=== PATIENT | female | born 1960 | race Caucasian/White ===

== ENCOUNTER 2018-03-31 14:03 | Emergency (ER) | payer BC, SELFPAY ==
[2018-03-31 14:13] VITALS: BP 153/78; PULSE 84; RESP 20; TEMP 36.6; O2SAT 97; BMI 37.5
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
[2018-03-31 14:35] LABS: Add Manual Diff / Slide Review NO; Basophils Percent Auto 0.8 % (0-2); Eosinophils Percent Auto 2.7 % (2-4); Hematocrit 44.9 % (36-46); Lymphocytes Percent Auto 23.1 % (25-40); Mean Corpuscular HGB Conc 33.3 % (30-36); Mean Corpuscular Hemoglobin 28.6 PG (26-34); Mean Corpuscular Volume 85.7 fL (80-100); Neutrophils Absolute Auto 6800 /uL (3000-5900); Neutrophils Percent Auto 68.4 % (50-75); Platelet Count 206 X10^3/uL (150-400); Red Blood Cell Count 5.24 X10^6/uL (4.0-5.2); Red Cell Distribution Width 16.1 % (11.6-14.8); White Blood Cell Count 9.9 X10^3/uL (4.5-11.0)
[2018-03-31 14:41] VITALS: O2SAT 98
[2018-03-31] MEDS: ALBUTEROL/IPRATROPIUM 3 ML AMPUL INH (14:41)
[2018-03-31 14:49] LABS: Lactate (Lactic Acid) 1.6 mmol/L (0.7-2.1)
[2018-03-31 14:50] LABS: Alanine Aminotransferase 24 IU/L (9-52); Albumin 3.9 g/dL (3.5-5.0); Albumin Globulin Ratio 1.6 (1.0-2.8); Alkaline Phosphatase 114 U/L (38-126); Aspartate Aminotransferase 19 IU/L (14-36); BUN Creatinine Ratio 15.6 (6-22); Bilirubin Total 0.3 mg/dL (0.2-1.3); Blood Urea Nitrogen 14 mg/dL (7-17); Calcium 8.2 mg/dL (8.4-10.2); Carbon Dioxide 28 mmol/L (22-32); Chloride 106 mmol/L (98-107); Estimated Glomerular Filt Rate > 60.0 mL/min (>60); Globulin 2.5 g/dL (1.7-4.1); Glucose 140 mg/dL (80-110); HEMOLYSIS < 15 (0-50); Potassium 3.7 mmol/L (3.4-5.1); Sodium 146 mmol/L (137-145); Total Protein 6.4 g/dL (6.3-8.2)
[2018-03-31] MEDS: CLINDAMYCIN 600 MG/50 ML PIGGYBACK 50 MG IV (14:58)
[2018-03-31 15:00] VITALS: BP 118/63; PULSE 88; RESP 19; O2SAT 95
[2018-03-31 15:20] LABS: Procalcitonin < 0.05 ng/mL (<0.5)
[2018-03-31 15:30] VITALS: BP 118/63; PULSE 89; RESP 16; O2SAT 96
[2018-03-31 16:09] VITALS: BP 113/70; PULSE 85; RESP 21; TEMP 36.6; O2SAT 94
== END 2018-03-31 16:10 | disposition home or self-care (01) ==
PROVIDERS: Emergency Provider Emergency Medicine; PCP Internal Medicine
DX: L03.115 Cellulitis of right lower limb (principal)
CPT/HCPCS: 36415; 36591; 80053; 82962; 83605; 84145; 85025; 87040; 94640; 96365; 99283; 99284

== ENCOUNTER 2018-04-05 19:05 | Emergency (ER) | payer BC, SELFPAY ==
[2018-04-05 19:15] VITALS: BP 154/101; PULSE 96; RESP 20; TEMP 36.4; O2SAT 96
[2018-04-05] MEDS: ALBUTEROL/IPRATROPIUM 3 ML AMPUL INH ×2 (19:30→19:44)
[2018-04-05 19:31] VITALS: O2SAT 94
[2018-04-05 19:59] VITALS: BP 145/80; PULSE 84; RESP 24; O2SAT 90
[2018-04-05] MEDS: predniSONE 20 MG TABLET 40 MG PO (20:11)
[2018-04-05 20:30] VITALS: BP 145/74; PULSE 88; O2SAT 95
--- NOTE | 2018-04-05 20:31 | ED_ITS ---
HPI - URI/Sore Throat <QUYEN Arteaga - Last Filed: 04/05/18 22:21> General Chief Complaint: Upper Respiratory Symptoms Stated Complaint: trouble breathing Time Seen by Provider: 04/05/18 19:19 Source: patient Mode of arrival: ambulatory Limitations: no limitations History of Present Illness HPI Narrative: 58-year-old female with history asthma and multiple cor morbidities and is everyday smoker here for complaint of having increased wheezing and shortness of breath over the past few days. She reports that her nebulizer machine has broken she is currently in the process of trying to get a new 1. She also reports that she has had some nasal congestion during the same timeframe. She denies having any fevers. Positive p.o. intake. No nausea vomiting. She denies any other concerns or complaints at this time. Related Data Home Medications Medication Instructions Recorded Confirmed albuterol sulfate [Ventolin HFA] 2 puff INH Q4-6H PRN #0 06/27/16 03/31/18 bumetanide 1 mg PO BID #0 06/27/16 03/31/18 budesonide-formoterol [Symbicort] 2 inh INH DAILY #0 06/17/17 03/31/18 atorvastatin [Lipitor] 20 mg PO BEDTIME #0 07/27/17 03/31/18 gabapentin [Neurontin] 300 mg PO TID #0 07/27/17 03/31/18 oxycodone 5 mg PO Q6HP PRN #0 07/27/17 03/31/18 pantoprazole 40 mg PO DAILY #0 08/05/17 03/31/18 calcitriol 0.5 mcg PO DAILY 03/24/18 03/31/18 diazepam 10 - 20 mg PO BEDTIME PRN 03/24/18 03/31/18 fluticasone 1 spray INTRANASAL DAILY PRN 03/24/18 03/31/18 hydrocodone-acetaminophen 1 tab PO Q6H 03/24/18 03/31/18 lamotrigine 200 mg PO BID 03/24/18 03/31/18 levothyroxine 150 mcg PO DAILY 03/24/18 03/31/18 lurasidone 40 mg PO BEDTIME 03/24/18 03/31/18 magnesium 200 mg PO DAILY 03/24/18 03/31/18 oxycodone [OxyContin] 10 mg PO Q12H 03/24/18 03/31/18 solifenacin 5 mg PO DAILY 03/24/18 03/31/18 spironolactone 25 mg PO DAILY 03/24/18 03/31/18 venlafaxine 150 mg PO QPM 03/24/18 03/31/18 insulin glargine [Lantus Solostar 20 units SUBCUT BID 03/31/18 03/31/18 U-100 Insulin] mupirocin 1 applic TOPICAL DIRECTED 03/31/18 03/31/18 pramipexole 1.5 mg PO TID 03/31/18 03/31/18 Previous Rx's Medication Instructions Recorded clobetasol-emollient 1 [place]ana TOPICAL BID #30 gm 08/05/17 clindamycin HCl 300 mg PO QID #28 cap 03/31/18 prednisone 40 mg PO DAILY #8 tab 04/05/18 Allergies Allergy/AdvReac Type Severity Reaction Status Date / Time ciprofloxacin [From CIPRO] Allergy Severe HIVES, Verified 03/31/18 14:09 VOMITING metoclopramide [From REGLAN] Allergy Severe VOMITING Verified 03/31/18 14:09 penicillamine Allergy Severe Anaphylaxix Verified 03/31/18 14:09 Penicillins [PENICILLINS] Allergy Severe SEIZURES-CHILDHOOD; Verified 03/31/18 14:09 RASH phenytoin [From DILANTIN] Allergy Severe HIGH Verified 03/31/18 14:09 FEVER, EXTENSIVE RASH Sulfa (Sulfonamide Allergy Severe HIVES Verified 03/31/18 14:09 Antibiotics) [SULFA (SULFONAMIDE ANTIBIOTICS)] sumatriptan [SUMATRIPTAN] Allergy Severe Severe Verified 03/31/18 14:09 hypertension, WORSENING HEADACHES vancomycin Allergy Severe Red Man Verified 03/31/18 14:09 Syndrome cephalexin [CEPHALEXIN] Allergy Intermediate RASH, Verified 03/31/18 14:09 VOMING methylphenidate Allergy Intermediate HTN Verified 03/31/18 14:09 [From RITALIN] sulfamethoxazole Allergy Mild RASH, Verified 03/31/18 14:09 [From BACTRIM] ITCHING, VOMITING trimethoprim [From BACTRIM] Allergy Mild RASH Verified 03/31/18 14:09 sertraline AdvReac Severe GI Verified 03/31/18 14:09 intolerance, severe hypertension morphine [MORPHINE] AdvReac Intermediate PANIC Verified 03/31/18 14:09 ATTACK Review of Systems <QUYEN Arteaga - Last Filed: 04/05/18 22:21> Constitutional Denies chills, Denies fever(s), Denies lethargy and Denies weakness Eyes Denies change in vision, Denies eye discharge, Denies irritation and Denies loss of vision ENT Ears, Nose, Mouth, and Throat: Denies change in voice, Denies neck pain and Denies sore throat Cardiovascular Denies chest pain, Denies irregular heart rhythm, Denies lightheadedness, Denies palpitations, Reports dyspnea and Denies orthopnea Respiratory Reports dyspnea and Reports wheezing Gastrointestinal Gastrointestinal: Denies abdominal pain, Denies change in bowel habits, Denies diarrhea, Denies nausea and Denies vomiting Genitourinary Denies hematuria, Denies flank pain, Denies urinary incontinence and Denies urinary urgency Musculoskeletal Denies neck pain Integumentary/Breasts Denies pruritus, Denies erythema, Denies rash and Denies wounds Neurologic Denies confusion, Denies loss of vision and Denies weakness Psychiatric Denies anxiety, Denies confusion, Denies depression, Denies homicidal ideation and Denies suicidal ideation Endocrine Denies palpitations Hematologic/Lymphatic Denies easy bruising Allergic/Immunologic Reports wheezing Exam <QUYEN Arteaga - Last Filed: 04/05/18 22:21> Initial Vital Signs Initial Vital Signs: Vital Signs Temperature 97.6 F 04/05/18 19:15 Pulse Rate 96 H 04/05/18 19:15 Respiratory Rate 20 04/05/18 19:15 Blood Pressure 154/101 H 04/05/18 19:15 Pulse Oximetry 96 04/05/18 19:15 Const General: cooperative and well developed Nutritional Appearance: well nourished Orientation: alert, awake, oriented x3 and not confused HENMT Mouth: oral mucosae normal and moist mucous membranes Eyes Conjunctivae: conjunctivae normal Sclera: sclerae normal Pupils: PERRL EOM: EOM intact bilaterally Resp Effort & Inspection: normal respiratory effort, able to speak in complete sentences, no respiratory distress and no use of accessory muscles Auscultation: no rales, no rhonchi and wheezes expiratory wheezes, lower bilaterally and upper bilaterally Cardio Rate: regular rate Rhythm: regular rhythm Heart Sounds: no click, no gallops, no murmurs and no rubs Skin General: no rashes or lesions noted, No jaundice and No petechiae Neuro General: alert, oriented x3, gait normal and no focal motor deficits Speech: speech normal <Irvin Yung DO - Last Filed: 04/06/18 00:17> Initial Vital Signs Initial Vital Signs: Vital Signs Temperature 97.6 F 04/05/18 19:15 Pulse Rate 96 H 04/05/18 19:15 Respiratory Rate 20 04/05/18 19:15 Blood Pressure 154/101 H 04/05/18 19:15 Pulse Oximetry 96 04/05/18 19:15 Course <QUYEN Arteaga - Last Filed: 04/05/18 22:21> Orders Ordered: Discontinued Medications Albuterol/Ipratropium (Duoneb) 3 ml INH NOW ONE Stop: 04/05/18 19:24 Last Admin: 04/05/18 19:30 Dose: 3 ml Albuterol/Ipratropium (Duoneb) 3 ml INH NOW PRN PRN Reason: Bronchodilation Last Admin: 04/05/18 19:44 Dose: 3 ml Prednisone (Deltasone) 40 mg PO NOW ONE Stop: 04/05/18 20:06 Last Admin: 04/05/18 20:11 Dose: 40 mg Vital Signs - 8 hr 04/05/18 19:15 04/05/18 19:31 04/05/18 19:59 Temperature 97.6 F Pulse Rate 96 H 84 Respiratory Rate 20 24 Blood Pressure 154/101 H Blood Pressure [Left Arm] 145/80 H Pulse Oximetry 96 94 90 L 04/05/18 20:30 04/05/18 20:50 Temperature 98.3 F Pulse Rate 88 86 Respiratory Rate 18 Blood Pressure 141/77 H Blood Pressure [Left Arm] 145/74 H Pulse Oximetry 95 92 <Irvin Yung DO - Last Filed: 04/06/18 00:17> Orders Ordered: Discontinued Medications Albuterol/Ipratropium (Duoneb) 3 ml INH NOW ONE Stop: 04/05/18 19:24 Last Admin: 04/05/18 19:30 Dose: 3 ml Albuterol/Ipratropium (Duoneb) 3 ml INH NOW PRN PRN Reason: Bronchodilation Last Admin: 04/05/18 19:44 Dose: 3 ml Prednisone (Deltasone) 40 mg PO NOW ONE Stop: 04/05/18 20:06 Last Admin: 04/05/18 20:11 Dose: 40 mg Vital Signs - 8 hr 04/05/18 19:15 04/05/18 19:31 04/05/18 19:59 Temperature 97.6 F Pulse Rate 96 H 84 Respiratory Rate 20 24 Blood Pressure 154/101 H Blood Pressure [Left Arm] 145/80 H Pulse Oximetry 96 94 90 L 04/05/18 20:30 04/05/18 20:50 Temperature 98.3 F Pulse Rate 88 86 Respiratory Rate 18 Blood Pressure 141/77 H Blood Pressure [Left Arm] 145/74 H Pulse Oximetry 95 92 MDM - URI/Sore Throat <QUYEN Arteaga - Last Filed: 04/05/18 22:21> MDM Narrative Medical decision making narrative: Signs and symptoms presents as asthma exacerbation secondary to a viral illness and also not having working nebulizer machine. She was given 2 DuoNeb treatments in the emergency room which helped her symptoms and she states she feels much better. She is encouraged to get her a nebulizer machine tomorrow to use her already prescribed nebulizer treatments. Continue to use her other asthma medications as well. She is given a short course of prednisone to help with exacerbation. Follow up with primary care provider. For any worsening symptoms return to the emergency room. Discharge Plan Departure Patient Disposition: Home Clinical Impression: Asthma exacerbation Discharge Date/Time: 04/05/18 20:54 Interventions: ED Discharge Assessment Last Done: 04/05/18 20:50 Instructions: DI for Asthma -- Adult Activity Restrictions/Additional Instructions: Signs and symptoms presents as asthma exacerbation secondary to a viral illness and also not having urine embolized machine. Gait with [facility] tomorrow to get your nebulizer machine replaced. Use asthma prescriptions as prescribed. You are prescribed a short course of prednisone use as directed. Plenty of fluids and rest follow up with her primary care provider this week. For any worsening symptoms return to the emergency room. Prescriptions: New prednisone 20 mg tablet 40 mg PO DAILY Qty: 8 RF: 0 No Action bumetanide 1 MG tablet 1 mg PO BID Qty: 0 RF: 0 albuterol sulfate [Ventolin HFA] 90 MCG/PUFF HFA aerosol inhaler 2 puff INH Q4-6H PRN (Reason: Wheezing) Qty: 0 RF: 0 budesonide-formoterol [Symbicort] 160 MCG/4.5 MCG HFA aerosol inhaler 2 inh INH DAILY Qty: 0 RF: 0 oxycodone 5 MG capsule 5 mg PO Q6HP PRN (Reason: Severe Pain) Qty: 0 RF: 0 gabapentin [Neurontin] 300 MG capsule 300 mg PO TID Qty: 0 RF: 0 atorvastatin [Lipitor] 20 MG tablet 20 mg PO BEDTIME Qty: 0 RF: 0 pantoprazole 40 MG tablet,delayed release (DR/EC) 40 mg PO DAILY Qty: 0 RF: 0 clobetasol-emollient 0.05 % cream 1 susana Topical BID Qty: 30 RF: 0 lamotrigine 200 mg Tablet 200 mg PO BID RF: 0 hydrocodone-acetaminophen 5-325 mg Tablet 1 tab PO Q6H RF: 0 venlafaxine 150 mg Capsule,Extended Release 24hr 150 mg PO QPM RF: 0 spironolactone 25 mg Tablet 25 mg PO DAILY RF: 0 calcitriol 0.5 mcg Capsule 0.5 mcg PO DAILY RF: 0 levothyroxine 150 mcg Tablet 150 mcg PO DAILY RF: 0 diazepam 10 mg Tablet 10 - 20 mg PO BEDTIME PRN (Reason: Sleep) RF: 0 fluticasone 50 mcg/actuation [place],Suspension 1 spray INTRANASAL DAILY PRN (Reason: Congestion) RF: 0 magnesium 200 mg Tablet 200 mg PO DAILY RF: 0 solifenacin 5 mg Tablet 5 mg PO DAILY RF: 0 lurasidone 40 mg Tablet 40 mg PO BEDTIME RF: 0 oxycodone [OxyContin] 10 mg Tablet,Oral Only,Ext.Rel.12 Hr 10 mg PO Q12H RF: 0 mupirocin 2 % ointment 1 applic Topical DIRECTED RF: 0 pramipexole 1.5 mg tablet 1.5 mg PO TID RF: 0 insulin glargine [Lantus Solostar U-100 Insulin] 100 unit/mL (3 mL) insulin pen 20 units subcut BID RF: 0 clindamycin HCl 300 mg capsule 300 mg PO QID Qty: 28 RF: 0 Referrals: Sole Davenport MD [Primary Care Provider] - <Irvin Potter, DO - Last Filed: 04/06/18 00:17> Cosign ED Attending Dianna Attestation: I was immediately available in the department for consultation. Documentation has been reviewed. I agree with assessment and plan.
[2018-04-05 20:50] VITALS: BP 141/77; PULSE 86; RESP 18; TEMP 36.8; O2SAT 92
== END 2018-04-05 20:54 | disposition home or self-care (01) ==
PROVIDERS: Emergency Provider Nurse Practitioner Family; PCP Internal Medicine
DX: J45.901 Unspecified asthma with (acute) exacerbation (principal)
CPT/HCPCS: 94640; 99282; 99283

== ENCOUNTER 2018-06-18 16:11 | Emergency (ER) | payer BC, SELFPAY ==
[2018-06-18 16:18] VITALS: BMI 35.2
[2018-06-18 16:21] VITALS: BP 133/77; PULSE 84; RESP 25; TEMP 36.8; O2SAT 94
--- NOTE | 2018-06-18 16:25 | DI.RAD.S_ITS ---
PROCEDURE: XR CHEST 1V INDICATIONS: chest pain TECHNIQUE: One view of the chest was acquired. COMPARISON: [facility], CR, XR CHEST 1 VIEW, 08/24/2017, 17:06. FINDINGS: Surgical changes and devices: None. Lungs and pleura: Lungs are clear. No pleural effusions or pneumothorax. Mediastinum: Mediastinal contours appear normal. Heart size is normal. Bones and chest wall: No suspicious bony lesions. Overlying soft tissues appear unremarkable. IMPRESSION: No acute cardiopulmonary disease process. Dictated by: Denise Meadows MD, PhD on 06/18/2018 at 16:48 Approved by: Denise Meadows MD, PhD on 06/18/2018 at 16:48
[2018-06-18 16:38] LABS: Add Manual Diff / Slide Review NO; Basophils Absolute Auto 100 /uL (0-100); Basophils Percent Auto 1.1 % (0-2); Eosinophils Absolute Auto 200 /uL (0-450); Eosinophils Percent Auto 1.7 % (2-4); Hematocrit 44.1 % (36-46); Hemoglobin 14.5 g/dL (12.0-16.0); Lymphocytes Absolute Auto 2400 /uL (1100-4500); Lymphocytes Percent Auto 21.8 % (25-40); Mean Corpuscular HGB Conc 32.9 % (30-36); Monocytes Absolute Auto 600 /uL (0-900); Monocytes Percent Auto 5.4 % (3-14); Neutrophils Absolute Auto 7800 /uL (1500-7000); Platelet Count 211 X10^3/uL (150-400); Red Blood Cell Count 5.19 X10^6/uL (4.0-5.2); Red Cell Distribution Width 15.9 % (11.6-14.8); White Blood Cell Count 11.1 X10^3/uL (4.5-11.0)
[2018-06-18 16:49] LABS: Alanine Aminotransferase 25 IU/L (9-52); Albumin Globulin Ratio 1.4 (1.0-2.8); Alkaline Phosphatase 111 U/L (38-126); Aspartate Aminotransferase 14 IU/L (14-36); BUN Creatinine Ratio 17.3 (6-22); Bilirubin Total 0.4 mg/dL (0.2-1.3); Blood Urea Nitrogen 19 mg/dL (7-17); Calcium 8.5 mg/dL (8.4-10.2); Carbon Dioxide 30 mmol/L (22-32); Chloride 100 mmol/L (98-107); Creatine Kinase 82 U/L (30-135); Estimated Glomerular Filt Rate 50.7 mL/min (>60); Globulin 2.8 g/dL (1.7-4.1); Glucose 109 mg/dL (80-110); HEMOLYSIS < 15 (0-50); Lipase 44 U/L (23-300); Potassium 3.3 mmol/L (3.4-5.1); Sodium 140 mmol/L (137-145); Total Protein 6.8 g/dL (6.3-8.2)
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
[2018-06-18 16:57] VITALS: BP 115/69; PULSE 73; RESP 18; O2SAT 91
[2018-06-18 17:01] LABS: Troponin I < 0.012 ng/mL (0.01-0.034)
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
[2018-06-18] MEDS: ACETAMINOPHEN 325 MG TABLET 975 MG PO (17:03)
== END 2018-06-18 17:49 | disposition home or self-care (01) ==
PROVIDERS: Emergency Provider Emergency Medicine; PCP Internal Medicine
DX: M79.602 Pain in left arm (principal); R20.0 Anesthesia of skin
CPT/HCPCS: 36591; 71045; 80053; 82550; 83690; 84484; 85025; 93005; 99283; 99285

== ENCOUNTER 2018-06-28 15:52 | Emergency (ER) | payer BC, SELFPAY ==
[2018-06-28 15:58] VITALS: BP 127/82; PULSE 85; RESP 14; TEMP 37.3; O2SAT 95
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
--- NOTE | 2018-06-28 19:50 | PC.NURSE ---
LLE cellulitis currently on abx. Patient concerned it isn't healing fast enough Redness and swelling noted, warm to the touch. Afebrile currently
[2018-06-28 19:52] VITALS: BP 128/79; PULSE 88; RESP 16; TEMP 36.6; O2SAT 98
== END 2018-06-28 19:52 | disposition home or self-care (01) ==
PROVIDERS: Emergency Provider Emergency Medicine; PCP Internal Medicine
DX: L03.115 Cellulitis of right lower limb (principal)
CPT/HCPCS: 99282

== ENCOUNTER → 2021-08-16 12:22 | Outpatient (CLI) | payer BC, SELFPAY ==
--- NOTE | 2021-08-16 | DI.MRI.S_ITS ---
PROCEDURE: MR KNEE LT WO CON INDICATIONS: Unspecified internal derangement of left knee TECHNIQUE: Noncontrast sagittal PD fast spin echo and T2 fast spin echo with fat saturation, sagittal 3-D FLASH with fat saturation; coronal T1 spin echo and PD fast spin echo with fat saturation, and axial PD fast spin echo with fat saturation through the knee. COMPARISON: [facility] [place], CR, XR KNEE ARTHRITIC SERIES LT, 10/02/2017, 11:20. FINDINGS: Image quality: Some images are degraded by motion artifact. Menisci: Blunting of the posterior horn, medial meniscus and extrusion of the anterior horn, medial meniscus, compatible with meniscal tear. The lateral meniscus is intact. Cruciate ligaments: The anterior and posterior cruciate ligaments appear intact. Medial structures: The medial collateral ligament appears intact. Visualized portions of the pes anserinus tendons appear normal. No abnormal bursal fluid. Lateral structures: The lateral collateral ligament, long and short heads of the biceps femoris tendon appear intact. The popliteus tendon appears normal. Iliotibial band appears normal. Anterior structures: The quadriceps and patellar tendons appear intact. Patellar alignment is normal. No femoral trochlear dysplasia or ventral trochlear prominence. No edema in the infrapatellar fat pad. Bones and cartilage: No evidence of fracture. Tricompartment osteophytosis, most prominent about the medial compartment. T1 hypointense signal in the medial femoral condyle and tibial plateau, compatible with osteochondral injury. Signal heterogeneity and thinning of the tricompartment hyaline cartilage, most prominent in the medial compartment. No focal defect is appreciated. Joint space: Small knee joint fluid. No substantial Hartman's cyst. IMPRESSION: 1. Changes of the medial meniscus as detailed above, compatible with tear. 2. Small suprapatellar joint effusion. Dictated by: Kye Downs M.D. on 08/16/2021 at 13:55 Approved by: Kye Downs M.D. on 08/16/2021 at 14:01
== END ==
PROVIDERS: PCP Internal Medicine; Referring Provider Orthopaedic Surgery; Visit Provider Orthopaedic Surgery
DX: M23.92 Unspecified internal derangement of left knee (principal); M25.462 Effusion, left knee
CPT/HCPCS: 73721

== ENCOUNTER → 2021-10-22 15:35 | Outpatient (CLI) | payer BC, SELFPAY ==
[2021-10-22 17:12] LABS: Add Manual Diff / Slide Review NO; Basophils Absolute Auto 100 /uL (0-100); Basophils Percent Auto 0.5 % (0-2); Eosinophils Absolute Auto 500 /uL (0-450); Eosinophils Percent Auto 4.7 % (2-4); Hematocrit 44.4 % (36-46); Hemoglobin 15.4 g/dL (12.0-16.0); Lymphocytes Absolute Auto 2900 /uL (1100-4500); Lymphocytes Percent Auto 27.9 % (25-40); Mean Corpuscular HGB Conc 34.6 % (30-36); Mean Corpuscular Hemoglobin 31.5 PG (26-34); Mean Corpuscular Volume 91.1 fL (80-100); Monocytes Absolute Auto 500 /uL (0-900); Monocytes Percent Auto 5.2 % (3-14); Neutrophils Absolute Auto 6500 /uL (1500-7000); Neutrophils Percent Auto 61.7 % (50-75); Platelet Count 185 X10^3/uL (150-400); Red Blood Cell Count 4.88 X10^6/uL (4.0-5.2); Red Cell Distribution Width 14.4 % (11.6-14.8); White Blood Cell Count 10.6 X10^3/uL (4.5-11.0)
[2021-10-22 17:47] LABS: Hemoglobin A1C% w Est Avg Glu 7.1 % (4.0-6.0)
[2021-10-22 17:50] LABS: Alanine Aminotransferase 21 IU/L (<35); Albumin 4.4 g/dL (3.5-5.0); Albumin Globulin Ratio 1.5 (1.0-2.8); Alkaline Phosphatase 122 U/L (38-126); Aspartate Aminotransferase 32 IU/L (14-36); BUN Creatinine Ratio 17.9 (6-22); Bilirubin Total 0.7 mg/dL (0.2-1.3); Blood Urea Nitrogen 19 mg/dL (7-17); Calcium 8.3 mg/dL (8.4-10.2); Carbon Dioxide 27 mmol/L (22-32); Chloride 104 mmol/L (98-107); Estimated Glomerular Filt Rate 59 mL/min (>60); Glucose 121 mg/dL (80-110); Potassium 4.1 mmol/L (3.4-5.1); Sodium 141 mmol/L (137-145); Total Protein 7.4 g/dL (6.3-8.2); Uric Acid 5.2 mg/dL (2.5-6.2)
[2021-10-22 17:56] LABS: HEMOLYSIS 102 (0-50)
== END ==
PROVIDERS: PCP Internal Medicine; Referring Provider Physician Assistant; Visit Provider Physician Assistant
DX: M25.562 Pain in left knee (principal)
CPT/HCPCS: 36415; 80053; 83036; 84550; 85025

== ENCOUNTER → 2021-11-02 09:42 | Outpatient (CLI) | payer BC, SELFPAY ==
[2021-11-02 11:30] LABS: COVID19 -Nasal RAPID Negative (Negative)
== END ==
PROVIDERS: PCP Internal Medicine; Referring Provider Orthopaedic Surgery; Visit Provider Orthopaedic Surgery
DX: Z20.822 Contact with and (suspected) exposure to COVID-19 (principal)
CPT/HCPCS: 87635; C9803

== ENCOUNTER 2021-11-06 09:37 | Observation (INO) | payer BC, SELFPAY ==
[2021-10-31 14:49] VITALS: BMI 36.3
[2021-11-05] VITALS (23 sets, daily range): BP systolic 110–137; BP diastolic 65–85; PULSE 77–98; RESP 12–18; TEMP 36.1–36.6; O2SAT 91–96; BMI 36.3
--- NOTE | 2021-11-05 07:15 | DI.RAD.S_ITS ---
PROCEDURE: XR KNEE LT 1TO2V INDICATIONS: TKA TECHNIQUE: 2 view(s) of the knee acquired. COMPARISON: [facility], , KNEE 1-2 VIEWS RIGHT, 07/27/2017, 12:12. FINDINGS: Bones: Patient is status post knee joint arthroplasty. Hardware components are in expected positions. Visualized bony structures are intact. Soft tissues: Overlying postoperative changes are noted. IMPRESSION: Status post left total knee arthroplasty. Dictated by: Bharati Negron M.D. on 11/05/2021 at 12:09 Approved by: Bharati Negron M.D. on 11/05/2021 at 12:09
[2021-11-05] MEDS: LACTATED RINGERS 1,000 ML 42 ML IV (07:16)
[2021-11-05] MEDS: CELECOXIB 200 MG CAPSULE PO (07:24)
[2021-11-05] MEDS: ACETAMINOPHEN 325 MG TABLET 975 MG PO (07:24)
[2021-11-05] MEDS: ALBUTEROL 2.5 MG/3 ML NEB (ADULT) INH ×3 (07:38→20:00)
[2021-11-05] MEDS: VANCOMYCIN 1,000 MG/200 ML PIGGYBACK 200 MG IV ×2 (07:38→20:09)
--- NOTE | 2021-11-05 07:40 | P.OP_ITS ---
Operative Date/Time/Diagnoses Date of procedure: 11/05/21 Time of procedure: 08:02 Pre-op diagnosis: Left knee osteoarthritis Post-op diagnosis: same Procedure & Clinicians Procedure: Left total knee arthroplasty Same procedure as scheduled: Yes Indications: The patient has had progressively worsening left knee pain with radiographic changes consistent with arthritis. Non-operative management has failed and the patient has requested total knee replacement. The risks, benefits and alternatives to surgery were discussed with the patient prior to proceeding. Risks discussed included, but were not limited to, failure to relieve pain, stiffness, infection, nerve damage, deep venous thrombosis, pulmonary embolism, stroke, coma, heart attack, permanent paralysis and , as well as the potential need for eventual revision of the prosthetic. Surgeon: Dulce Culp Air Pollution Inspector: Doron Franz Anesthesia Type: General and Spinal Operative Notes Findings: Severe left knee arthritis, adequate stability Closure Type: primary Specimen(s): none sent Prosthetic devices, grafts, tissues, transplants, or devices: [employer] BCS 2 size 3 femur, size 3 tibia, +10 poly, 35mm oval Applied: drain(s) Estimated Blood Loss (mL): 250 Blood products transfused: none Tourniquet time (min): 73 Procedure in detail: The patient was seen in the pre-operative area, where the patient identified the left knee as the operative site and this was marked with my initials. The patient received pre-operative antibiotics, and was taken to the operating room and placed on the operative table in the supine position. After satisfactory anesthesia, a cdl b driver out was performed. The left leg was encircled with a tourniquet about the proximal thigh, and the leg was prepared from the toes to the tourniquet with ChloroPrep in the usual fashion and draped through sterile drapes. The leg was elevated and exsanguinated with Eschmark bandage and the tourniquet inflated to [300] mmHg pressure. The knee was approached through an approximately 18 cm incision centered over the patella and carried into the knee through a medial parapatellar arthrotomy. Portion of the medial and lateral meniscus was resected. Soft tissue was carefully mobilized around the patella the patella was measured with a caliper. Bone was resected from the patella and the patellar height was reconstituted with up an appropriate sized patellar component. A cover was then placed on the patella. A small amount of additional medial and lateral meniscus was resected. The visionare guide fit well to the distal femur. It looked like an appropriate distal femoral cut and the cut was made without difficulty. The rotation was assessed and the appropriate size femoral guide was placed on the distal femur and finishing cuts were made. There was no evidence of notching. The anterior, posterior and chamfer cuts were then made. The posterior osteophytes and soft tissues were then removed. The posterior capsule was injected with part of a mixture of 60 ml 0.25% Marcaine mixed with 20 ml Exparel for post operative pain control. The remainder of this mixture was injected into the capsule and subcutaneous tissues during cement curing. The tibia was prepared and the visionaire guide fit well to the distal tibia. The rotation was assessed. The patient was placed in extension residual medial and lateral meniscus as well as any residual bone was carefully resected. [No] additional tibia was resected. Hemostasis was achieved especially posteriorly. Additional local was injected into the posterior capsule. The extension gap was assessed and additional releases for gap balancing were performed as necessary. It was checked with the gap printed circuit boards router. The femoral component was trial was placed and the notch was finished. Trial tibial and femoral components were then placed and the knee placed through a range of motion. Range of motion was [0-130], with good stability throughout the range. The trials were then removed, and the tibia was finished. The bone was prepared with pulsatile lavage, and dried with a sponge. Cement was applied and the final prosthetics placed. Excess cement was removed during and after cement curing. A brief Betadine soak was performed. After confirming there was no extruded cement posteriorly, the final tibial insert was placed. The knee was copiously irrigated and the tourniquet deflated. Hemostasis was obtained with the [Aquamantys system]. A drain was placed and brought out superolaterally. The capsule was closed with interrupted Vicryl suture. The subcutaneous layer was closed with barbed sutures, and the skin with a running 3-0 V-Lock suture and skin nasir. A Reggie dressing was applied and the patient was taken to recovery having tolerated the procedure well. Complications: none Post-operative Condition: stable Disposition: Acute Care Plan for aftercare: The patient will be maintained on a standard total knee replacement protocol with weight bearing as tolerated. The patient will be admitted as an inpatient. She has multiple medical problems including insulin-dependent diabetes, asthma, significant obesity and has had some component of chronic pain problems with poor tolerance to some narcotics. The goal is to mood mobilize her get her out of bed weight-bearing as tolerated in eventually get her to go home but I think she needs acute Care Nursing more than an outpatient with a bed. She also has some component of chronic venous stasis. The patient will receive aspirin and sequential compression devices for DVT prophylaxis. The patient will be discharged home when safe for the home environment.
--- NOTE | 2021-11-05 07:41 | PM.PREOP ---
Pre-operative Note COVID-19 COVID-19 status: Negative Interval Note History & Physical reviewed/Exam performed by Physician: Yes Changes to H&P: No
[2021-11-05] MEDS: CLINDAMYCIN 900 MG/50 ML PIGGYBACK 50 MG IV (08:14)
[2021-11-05] MEDS: TRANEXAMIC ACID 1,000 MG VIAL 2000 MG INJ ×2 (08:23→10:02)
[2021-11-05] MEDS: SODIUM CHLORIDE IRRIG SOLUTION 250 ML, POVIDONE-IODINE SPONGE STICKS 1 APPLIC IRR (08:42)
[2021-11-05] MEDS: BUPIVACAINE 0.25% (PF) 60 ML, EPINEPHrine 0.3 MG INJ (08:43)
--- NOTE | 2021-11-05 08:52 | SUR.OPER ---
Supine on padded OR bed. Pillow under head, arms secured on padded armboards <90 degree abduction. Safety belt across torso. Non-operative leg secured with tape over blanket over lower leg. Operative leg secured in [place]o positioner and in control of the Surgeon. Foam padded brace at thigh of operative leg.
[2021-11-05] MEDS: BUPIVACAINE LIPOSOME 266 MG/20 ML VIAL INJ (09:20)
[2021-11-05] MEDS: HYDROMORPHONE 2 MG INJ IV ×2 (11:05→11:25)
[2021-11-05] MEDS: hydrOXYzine 50 MG/ML INJ 25 MG IM (11:13)
[2021-11-05] MEDS: OXYCODONE IR 5 MG TABLET PO (11:31)
--- NOTE | 2021-11-05 11:48 | SUR.OPER ---
Patient unable to remove ring from left fourth finger for surgery, therefore kept in place.
[2021-11-05] MEDS: LACTATED RINGERS 1,000 ML 100 ML IV ×2 (13:34→23:54)
[2021-11-05] MEDS: ACETAMINOPHEN 325 MG TABLET 650 MG PO ×3 (13:34→23:55)
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
[2021-11-05] MEDS: PRAMIPEXOLE 1 MG TABLET 1.5 MG PO ×2 (15:15→20:17)
[2021-11-05] MEDS: GABAPENTIN 300 MG CAPSULE PO ×2 (15:15→20:19)
[2021-11-05] MEDS: NICOTINE 21 MG PATCH TOP (15:15)
[2021-11-05] MEDS: VENLAFAXINE ER 75 MG CAP 150 MG PO (19:04)
[2021-11-05] MEDS: OXYCODONE IR 5 MG TABLET 10 MG PO ×2 (19:14→23:55)
[2021-11-05] MEDS: BUDESONIDE 0.5 MG/2 ML NEB INH (20:00)
[2021-11-05] MEDS: ATORVASTATIN 20 MG TABLET PO (20:20)
[2021-11-05] MEDS: DOCUSATE 100 MG CAPSULE PO (20:20)
[2021-11-05] MEDS: ASPIRIN EC 81 MG TABLET PO (20:20)
[2021-11-05] MEDS: lamoTRIgine 100 MG TABLET 200 MG PO (20:20)
[2021-11-05] MEDS: MUPIROCIN 22 GM OINT 1 APPLIC TOP (21:44)
[2021-11-05] MEDS: INSULIN GLARGINE 100 UNIT/ML 3ML PEN 20 UNIT SUBCUT (21:45)
[2021-11-05] MEDS: BUMETANIDE 1 MG TABLET PO (21:52)
[2021-11-06] VITALS (12 sets, daily range): BP systolic 101–124; BP diastolic 55–70; PULSE 75–87; RESP 15–21; TEMP 36.1–37; O2SAT 94–97
[2021-11-06] MEDS: ALBUTEROL 2.5 MG/3 ML NEB (ADULT) INH ×5 (02:19→22:34)
--- NOTE | 2021-11-06 02:47 | PC.NURSE ---
pt received Vanco IVP per JUL at 2008 and pt reported no allergy to med. Patient allergy lists Vanco with a severe reaction with Red Man Syndrome. Patient tolerated infusion without s/s of adverse reaction.
[2021-11-06] MEDS: OXYCODONE IR 5 MG TABLET 10 MG PO ×3 (04:19→13:44)
[2021-11-06 05:19] LABS: Hematocrit 40.3 % (36-46); Hemoglobin 13.4 g/dL (12.0-16.0)
[2021-11-06] MEDS: LEVOTHYROXINE 150 MCG TABLET PO (06:56)
[2021-11-06] MEDS: ACETAMINOPHEN 325 MG TABLET 650 MG PO ×3 (06:56→17:11)
[2021-11-06] MEDS: NICOTINE 21 MG PATCH TOP (08:39)
[2021-11-06] MEDS: BUDESONIDE 0.5 MG/2 ML NEB INH ×2 (08:41→20:06)
[2021-11-06] MEDS: DOCUSATE 100 MG CAPSULE PO ×2 (08:41→22:23)
[2021-11-06] MEDS: PRAMIPEXOLE 1 MG TABLET 1.5 MG PO ×3 (08:41→22:23)
[2021-11-06] MEDS: lamoTRIgine 100 MG TABLET 200 MG PO ×2 (08:42→22:24)
[2021-11-06] MEDS: SPIRONOLACTONE 25 MG TABLET PO (08:42)
[2021-11-06] MEDS: PANTOPRAZOLE DR 40 MG TABLET PO (08:43)
[2021-11-06] MEDS: ASPIRIN EC 81 MG TABLET PO ×3 (08:43→22:24)
[2021-11-06] MEDS: GABAPENTIN 300 MG CAPSULE PO ×3 (08:43→22:24)
[2021-11-06] MEDS: SOLIFENACIN 5 MG TABLET PO (08:43)
[2021-11-06] MEDS: MAGNESIUM OXIDE 400 MG TABLET 200 MG PO (08:43)
[2021-11-06] MEDS: calcitrioL 0.25 MCG CAPSULE 0.5 MCG PO (08:44)
[2021-11-06] MEDS: INSULIN GLARGINE 100 UNIT/ML 3ML PEN 20 UNIT SUBCUT ×2 (08:44→22:51)
[2021-11-06] MEDS: BUMETANIDE 1 MG TABLET PO ×2 (08:47→22:24)
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
--- NOTE | 2021-11-06 11:31 | CM.DANOTE ---
Addendum entered by Emilia Quinn R.N. 11/06/21 12:42: Spoke to Toño, and stated, she will need jail, she was barely able to work with therapy, due to pain. [place] had indicated that patient wanted to go to [facility], did not want to go to [facility], she had a bad experience there. Called Nita at [facility], and asked her to review. She then called back and indicated that [facility] is out of their network, and patient would have to pay about 40%. Spoke to patient and spouse, Navarro, and updated them. He stated, they can't afford 40%. Gave Medicare Choice list, and let them know that this DC Carbide Grinder will follow up with [facility], and [facility], to see if they are in network. Left message with Candice Conway and [facility], and had Shahida fax referral. Called [facility]la and spoke to Candido in admissions. She indicated that they are in network, and have beds. Having Shahida fax [facility] first. Will follow up later today. Original Note: DCP: Case received, EMR reviewed and met with patient. Introduced self and role. Was able to obtain information regarding patient's baseline activity status prior to surgery, as well as her current living situation. DCP assessment completed with information currently available. Patient is a 61 year old female who admitted yesterday morning to the care of the orthopedic team. PCP: Dr. Davenport. Payer: confirmed: BS Out of [facility]. Patient came to the hospital via private vehicle for a surgical procedure. Patient had left total knee arthroplasty. Patient has history of left knee osteoarthritis. Patient does have history of some medical co-morbidities, insulin-dependent diabetic, asthma, as well as chronic venous stasis and chronic pain syndrome. Patient had been falling asleep while eating her breakfast, when ortho P.A. came in. She was supposed to call her spouse for caregiver training, but forgot to do so. She was complaining of pain to be a 12 out of 10. Met with patient in her room. She was sitting up in bed, groggy. Confirmed that patient resides in [facility] with her spouse, Navarro, and also, son and [id number]. She does not currently drive, she stated, she has used [facility] in the past, with nursing, for her legs, due to her history of chronic stasis. She indicated, her [id number] can't help her, she has her own mental health problems, but her spouse, Navarro, would be the one assisting her. He is retired, was working as a contractor. P: DCP to continue to follow. She will work more with P.Mogi. today, and will initiate referral for [facility] per patient's request. Emilia Quinn RN/Harbor Department Manager Discharge Planning/Care Management CM Discharge Assessment Start: 11/06/21 11:27 Freq: Status: Active Protocol: Document 11/06/21 11:27 (Rec: 11/06/21 11:31 [id number]) Discharge Planning Assessment Assigned Insurance Operations Rep Emilia Quinn RN/Harbor Department Manager Advance Directives? No History Provided By Patient,Medical Record Prior Living Arrangements House Household Members spouse Type of transporation used prior to Relies on Others admit Independent with ADL's Yes Is patient alert and oriented? Yes Needs Assistance With Home Chores / Shopping Caregiver for Another No DME Already Rented / Owned Cane Patient/Family Preference Home with Home Health Comment Patient is requesting [facility]. Barriers to Discharge No Discharge Plan Home with Home Health Transportation Arrangement Spouse Referrals Initiated Home Health If patient plan is home with home health Yes: There some presigned face : Has signed face to face form been to face forms available completed? Medicare Choice List Provided Yes SNF/HH Preference Patient is already requesting [facility]. Comment Will contact them today Whiteboard Updated in Patient Room with Yes name and ext. # of Insurance Operations Rep Review Status In Process Next Review Type Continued Stay Review Pre-Anesthesia Assessment Start: 10/31/21 14:49 Freq: Status: Complete Protocol: Document 10/31/21 14:49 CAB (Rec: 10/31/21 15:26 CAB [id number]) Pre-Anesthesia Assessment PAC Comment Pt declined PAC phone assess. She reports no changes to medical/medication history and has no questions/concerns with upcomin surgery, chart review only. Patient Information Reviewed Via Chart Review Primary Care Provider Sole Davenport Seen Specialist in Last 12 Months Yes Specialist Seen Check Writing Machine Operator,Orthopedist Primary Language M[place]ese Wage And Hour Investigator Required No Height 5 ft 4 in Weight 212 lb Body Mass Index (BMI) 36.3 Hx Anesthesia Reactions Yes: Reported Post-op N&V, longer recovery times,K+/Ca unstable Hx Family Anesthesia Reaction No Hx Malignant Hyperthermia No Hx Blood Transfusions No Anesthesia Review Requested Yes: Reviewed prior to scheduling Board Layer No alcohol intake never Smoking Status Current every day smoker Tobacco type cigarettes,e-cigarettes Smoking packs per day 2 Substance Use Type marijuana,opiates,prescription drug Pain Present Pain Reported Mental Status Oriented to own ability Does patient have SAENZ/SOB Yes: Pt states related to smoking, coughing Currently Taking a Beta Lasha No Can You Climb a Flight of Stairs Without No SOB Hx Chest Pain No Hx SOB Yes: Pt states related to smoking, coughing Hx Syncope or Dizziness Yes: Pt states related to smoking, coughing Has a Check Writing Machine Operator Yes: Dr. Day Cardiac Testing No Hx Pacemaker/ICD No Pacemaker Rep Required? No Comment Cardiac records Hx Urinary Self Catheterization No Diabetes Yes Hx Drug Resistant Organism Chronic right leg cellulitis Presence of External or Internal Medical Yes: back cage Devices Lives With spouse Patient Discharge Plan Description [facility] Facility/Rehab Do You Have Any Spiritual Beliefs That No May Affect Your HC Choices? Do You Have Any Cultural Practices That No May Affect Your HC Choices? Emergency Contact Name Enoc Sarah - spouse Emergency Contact Advance Directives? No
--- NOTE | 2021-11-06 11:58 | PT.IPTN ---
Current Diagnoses Unilateral primary osteoarthritis, left knee (11/05/21) Surgery Performed Operation Date: 11/05/21 07:45 Actual Procedures p Total Knee Arthroplasty(Left) - Dulce Culp MD Physical Therapy Treatment Note M2 PT-IP Current Condition Start: 11/05/21 15:23 Freq: NEEDED Status: Active Protocol: Document 11/05/21 14:30 AB (Rec: 11/05/21 15:33 AB [id number]) Physical Therapy Current Condition Current Condition Evaluation Date 11/05/21 Treatment Diagnosis s/p L TKA; difficulty in walking Onset Date 11/05/21 M3 PT-IP Subjective Start: 11/05/21 15:23 Freq: NEEDED Status: Active Protocol: Document 11/06/21 11:34 KS (Rec: 11/06/21 12:33 KS [id number]) Subjective Physical Therapy Visit Type Type Treatment Note Visit Start Time 11:34 Visit Stop Time 11:58 Total Visit Minutes 24 Notes Spouse present for initiation of caregiver training. Number of OSTEOPATHY DOCTOR Visits 1 Physical Therapy Visit Comments Patient Comments agreeable to do PT Therapy Pain Assessment Pain When Pain Assessed At Rest Pain Present Pain Present Pain Reported M4 PT-IP Mobility and Gait Start: 11/05/21 15:23 Freq: NEEDED Status: Active Protocol: Document 11/06/21 11:34 KS (Rec: 11/06/21 12:33 KS [id number]) PT-Bed Mobility Assessment Supine to Sit Supine to Sit Standby Assistance Sit to Supine Sit to Supine Moderate Assistance,1 Person Assistance,Head of Bed Elevated Scooting Scooting to Edge of Bed Contact Guard Assistance PT-Transfer Assessment Sit to and From Stand Sit to and from Stand Maximum Assistance,1 Person Assistance,Use of Upper Extremities Equipment Transfer Assistive Device Gait Belt,Front Wheeled Walker Orthotic/Prosthetic Devices or Brace: No Transfers Transfer Destination Bed Transfer Technique Lateral steps Transfer Ability Level of Assist Moderate Assistance,Maximum Assistance,1 Person Assistance ,Use of Upper Extremities Comments Mobility Comments Pt in bed upon arrival and in room. Pt reporting high pain prior to mobility. SBA for sup<>sit, CGA for scooting EOB. Pt on 2L O2 and desat to 85% w/ mobility but recovers quickly w/ cues for deep breaths. Pt reported dizziness, but BP stable. Demonstrated gait belt application and FWW securing and how to assist pt to stand to . Pt sit<>stand Max A x1 w/ FWW and had difficulty weight bearing on LLE due to pain. Pt O2 desat to 83-85%, instructed pt to sit down and O2 recovered quickly to 94%. She then sit<>stand again Max A and took 2 small lateral steps towards HOB but unable to tolerate more and needed Mod A for sit<>sup. Pt left in bed w/ all needs in reach. Gait Assessment Gait Gait Assistance Required: Moderate Assistance,1 Person Assist Distance (Feet) 2 Able to Maintain Weight Bearing Status Yes During Gait Assistive Devices Assistive Device Gait Belt,Front Wheeled Walker Orthotic/Prosthetic Devices or Brace: No Gait Deviations General Gait Pattern Antalgic,Decreased Stride Length,Decreased Feet Clearance Factors Limiting Gait Function Factors Limiting Gait Function Decreased Activity Tolerance, Decreased Sensation,Decreased Strength,Difficulty Following Directions,Limited Range of Motion,Pain,Poor Safety Awareness,Respiratory Distress Comments Gait Comments Pt unable to tolerate gait toda due to pain and weakness. Only took two small lateral steps towards HOB. PT-Balance Assessment Sitting Balance and Reactions Static Sitting Balance Ability Fair Dynamic Sitting Balance Ability Fair Standing Balance and Reactions Static Standing Balance Ability Poor Dynamic Standing Balance Ability Poor Device Used FWW M5 PT-IP Objective Assessments Start: 11/05/21 15:23 Freq: NEEDED Status: Active Protocol: Document 11/05/21 14:30 AB (Rec: 11/05/21 15:33 AB [id number]) Orientation Orientation/Cognition Level of Alertness Lethargic Orientation Name Safety Awareness Decreased Safety Awareness Memory Description Short Term Impaired Gross Range of Motion Lower Extremity ROM Assessment Left Impaired Impairments L knee flexion: ~ 30 deg with increase guarding and c/o pain with movement Strength Lower Extremity Strength Assessment Left Impaired Hip 3+/5 Knee 3+/5 Sensation Assessment Sensation Gross Sensation Left LE Impaired Sensation Description Numbness Comments Sensation Comments c/o slight numbenss on LLE Muscle Tone Muscle Tone WNL Yes M6 PT-IP Treatment Start: 11/05/21 15:23 Freq: NEEDED Status: Active Protocol: Document 11/06/21 11:34 KS (Rec: 11/06/21 12:33 KS [id number]) Physical Therapy Treatment Education Education Provided Precautions,Weight Bearing Status,Post-Op Packet,Safety M7 PT-IP Assessment and Plan Start: 11/05/21 15:23 Freq: NEEDED Status: Active Protocol: Document 11/06/21 11:34 KS (Rec: 11/06/21 12:33 KS [id number]) PT Summary Assessment and Plan Potential Rehabilitation Potential Fair Status of Condition at Evaluation Evolving Summary Impairments Pain,ROM,Strength,Balance, Coordination,Sensation,Tone, Cognition,Bed Mobility, Transfers,Gait,Activity Tolerance Assessment Summary Pt slow to progress, SBA for sup<>sit, but Max A for sit<> stand w/ FWW and Mod A for sit<>sup for LE elevation into bed. Unable to tolerate ambulation today. Initiated caregiver training, but at this time pt is not safe to go home and will need SNF to improve. She has stairs at home which are a big barrier considering she has not been able to progress her gait. Will continue to assess progress. Goals Bed Mobility Goal Independent Transfer Goal Independent,Front Wheeled Walker Gait Goal Independent,Front Wheel Walker Gait Distance 250 Other Goals up/down 3 steps without rails SPC + SR RISK MANAGEMENT CONSULTANT min A up/down 16 steps L rail ascending SBA. Days to Meet Goals 10 Frequency of Treatment Frequency Of Treatment Twice a Day Treatment Plan Physical Therapy Treatment Plan Bed Mobility Training,Transfer Training,Gait Training, Therapeutic Exercise,Balance Retraining,Post Op Education, Discharge Planning,Hot or Cold Pack,Neuromuscular Re-ed, Coordination Retraining,Manual Therapy Weight Bearing Status Weight Bearing Status Weight Bear as Tolerated Allowed Weight Bearing Amount (enter % LLE WBAT or #) (%) Recommendations To Nursing Amount of Assist Needed 1 Person Assist Discharge Recommendations PT Discharge Recommendations Home with 24/11 Assist Available,Home Health Transportation Needs at Discharge Private Vehicle,Wheelchair/ Cabulance
--- NOTE | 2021-11-06 13:06 | CM.DPNOTE ---
Faxed [facility] & Karla snfs & email Candice Shay. Shahida Whitley CM Assist.
--- NOTE | 2021-11-06 14:09 | PT.IPTN ---
Current Diagnoses Unilateral primary osteoarthritis, left knee (11/05/21) Surgery Performed Operation Date: 11/05/21 07:45 Actual Procedures p Total Knee Arthroplasty(Left) - Dulce Culp MD Physical Therapy Treatment Note M2 PT-IP Current Condition Start: 11/05/21 15:23 Freq: NEEDED Status: Active Protocol: Document 11/05/21 14:30 AB (Rec: 11/05/21 15:33 AB [id number]) Physical Therapy Current Condition Current Condition Evaluation Date 11/05/21 Treatment Diagnosis s/p L TKA; difficulty in walking Onset Date 11/05/21 M3 PT-IP Subjective Start: 11/05/21 15:23 Freq: NEEDED Status: Active Protocol: Document 11/06/21 13:46 KS (Rec: 11/06/21 14:45 KS [id number]) Subjective Physical Therapy Visit Type Type Treatment Note Visit Start Time 13:46 Visit Stop Time 14:09 Total Visit Minutes 23 Number of FORESTRY AND WILDLIFE MANAGER Visits 2 Physical Therapy Visit Comments Patient Comments agreeable to do PT Therapy Pain Assessment Pain When Pain Assessed At Rest Pain Present Pain Present Pain Reported M4 PT-IP Mobility and Gait Start: 11/05/21 15:23 Freq: NEEDED Status: Active Protocol: Document 11/06/21 13:46 KS (Rec: 11/06/21 14:45 KS [id number]) PT-Bed Mobility Assessment Supine to Sit Supine to Sit Standby Assistance Sit to Supine Sit to Supine Moderate Assistance,1 Person Assistance,Head of Bed Elevated Scooting Scooting to Edge of Bed Contact Guard Assistance PT-Transfer Assessment Sit to and From Stand Sit to and from Stand Minimal Assistance,1 Person Assistance,Use of Upper Extremities Equipment Transfer Assistive Device Gait Belt,Front Wheeled Walker Orthotic/Prosthetic Devices or Brace: No Transfers Transfer Destination Bed Transfer Technique Lateral steps Transfer Ability Level of Assist Minimal Assistance,Moderate Assistance,1 Person Assistance ,Use of Upper Extremities Comments Mobility Comments Pt in bed upon arrival and agreeable to PT. SBA for sup<> sit, Min A for sit<>stand w/ FWW w/ cues for hand placement . Pt c/o intense pain when standing but able to calm down after a few minutes. She then performed 3x [address] Pt barely able to elevate LLE off of floor ad difficulty time tolerating weight bearing. SHe took ~2 min seated rest break and then performed additional sit>stand w/ Min A. She took ~4 small lateral steps towards HOB Mod A and refused further ambulation. Pt sat down w/ poor control and cried out in pain. She then performed 3 additional sit<>stands w/ FWW Min A w/ cues for proper technique. At EOB she completed ankle pumps, heel slides, and LAQs w/ difficulty and c/o pain. Mod A for sit<> sup and repositioning in bed. Pt left in bed w/ all needs in reach. Gait Assessment Gait Gait Assistance Required: Moderate Assistance,1 Person Assist Distance (Feet) 3 Able to Maintain Weight Bearing Status Yes During Gait Assistive Devices Assistive Device Gait Belt,Front Wheeled Walker Orthotic/Prosthetic Devices or Brace: No Gait Deviations General Gait Pattern Antalgic,Decreased Stride Length,Decreased Feet Clearance Factors Limiting Gait Function Factors Limiting Gait Function Decreased Activity Tolerance, Decreased Sensation,Decreased Strength,Difficulty Following Directions,Limited Range of Motion,Pain,Poor Safety Awareness,Respiratory Distress Comments Gait Comments Pt unable to tolerate gait toda due to pain and weakness. Took 4 small lateral steps towards HOB. Stair Climbing Assessment Comments Stair Climbing Comments Unable to tolerate today. PT-Balance Assessment Sitting Balance and Reactions Static Sitting Balance Ability Fair Dynamic Sitting Balance Ability Fair Standing Balance and Reactions Static Standing Balance Ability Fair Dynamic Standing Balance Ability Poor Device Used FWW M5 PT-IP Objective Assessments Start: 11/05/21 15:23 Freq: NEEDED Status: Active Protocol: Document 11/05/21 14:30 AB (Rec: 11/05/21 15:33 AB [email or web address]) Orientation Orientation/Cognition Level of Alertness Lethargic Orientation Name Safety Awareness Decreased Safety Awareness Memory Description Short Term Impaired Gross Range of Motion Lower Extremity ROM Assessment Left Impaired Impairments L knee flexion: ~ 30 deg with increase guarding and c/o pain with movement Strength Lower Extremity Strength Assessment Left Impaired Hip 3+/5 Knee 3+/5 Sensation Assessment Sensation Gross Sensation Left LE Impaired Sensation Description Numbness Comments Sensation Comments c/o slight numbenss on LLE Muscle Tone Muscle Tone WNL Yes M6 PT-IP Treatment Start: 11/05/21 15:23 Freq: NEEDED Status: Active Protocol: Document 11/06/21 13:46 KS (Rec: 11/06/21 14:45 KS [id number]) Physical Therapy Treatment Exercises Exercises Ankle Pumps,Heel Slides,Seated Knee Flexion/Extension Education Education Provided Precautions,Weight Bearing Status,Post-Op Packet,Safety M7 PT-IP Assessment and Plan Start: 11/05/21 15:23 Freq: NEEDED Status: Active Protocol: Document 11/06/21 13:46 KS (Rec: 11/06/21 14:45 KS [id number]) PT Summary Assessment and Plan Potential Rehabilitation Potential Fair Status of Condition at Evaluation Evolving Summary Impairments Pain,ROM,Strength,Balance, Coordination,Sensation,Tone, Cognition,Bed Mobility, Transfers,Gait,Activity Tolerance Progress Towards Goals Slow Progress due to Pain,Slow Progress due to Activity Tolerance Assessment Summary Pt w/ slow progress this PM, but required less assist overall and able to tolerate marching in place and sit<> Stands Min A w/ cues. Pt refused further ambulation due to pain and fatigue but agreeable to trying tomorrow. O2 continues to decreased to mid 80s w/ mobility, but quickly increases to 90s w/ rest. She has stairs at home which are currently a barrier considering she has not been able to progress her gait. Will continue to assess progress. Goals Bed Mobility Goal Independent Transfer Goal Independent,Front Wheeled Walker Gait Goal Independent,Front Wheel Walker Gait Distance 250 Other Goals up/down 3 steps without rails SPC + UNIT MANAGER RN min A up/down 16 steps L rail ascending SBA. Days to Meet Goals 10 Frequency of Treatment Frequency Of Treatment Twice a Day Treatment Plan Physical Therapy Treatment Plan Bed Mobility Training,Transfer Training,Gait Training, Therapeutic Exercise,Balance Retraining,Post Op Education, Discharge Planning,Hot or Cold Pack,Neuromuscular Re-ed, Coordination Retraining,Manual Therapy Weight Bearing Status Weight Bearing Status Weight Bear as Tolerated Allowed Weight Bearing Amount (enter % LLE WBAT or #) (%) Recommendations To Nursing Amount of Assist Needed 1 Person Assist Discharge Recommendations PT Discharge Recommendations Home with 24/11 Assist Available,Home Health,SNF Rehab Transportation Needs at Discharge Private Vehicle,Wheelchair/ Cabulance
--- NOTE | 2021-11-06 14:14 | PC.NURSE ---
patient request to leave frye in for today. when working with PT,she stood up of bed and march in place.
[2021-11-06] MEDS: HYDROMORPHONE 0.5 MG INJ 0.2 MG IV (15:02)
[2021-11-06] MEDS: VENLAFAXINE ER 75 MG CAP 150 MG PO (17:11)
[2021-11-06] MEDS: HYDROMORPHONE 2 MG TABLET PO (22:16)
[2021-11-06] MEDS: ATORVASTATIN 20 MG TABLET PO (22:23)
[2021-11-06] MEDS: ONDANSETRON 4 MG ODT PO (22:34)
[2021-11-06] MEDS: diazePAM 5 MG TABLET PO (22:34)
--- NOTE | 2021-11-06 22:48 | RT ---
Rt called to pt bedside for PRN Albuterol. Rt noted Pt has been needing frequent PRN txs more then at her baseline. Pt states that she smokes 4 pack/day. She hasnt wanted to smoke since using nicotine patch. Pt may benefit from oral steroids. RN notified.
[2021-11-07] VITALS (13 sets, daily range): BP systolic 114–149; BP diastolic 66–85; PULSE 85–94; RESP 16–18; TEMP 36.2–36.8; O2SAT 93–96
[2021-11-07] MEDS: OXYCODONE IR 10 MG TABLET PO (00:56)
[2021-11-07] MEDS: ACETAMINOPHEN 325 MG TABLET 650 MG PO ×4 (00:56→18:05)
[2021-11-07] MEDS: HYDROMORPHONE 2 MG TABLET PO ×2 (04:17→06:54)
[2021-11-07] MEDS: ALBUTEROL 2.5 MG/3 ML NEB (ADULT) INH ×5 (04:54→21:50)
[2021-11-07] MEDS: LEVOTHYROXINE 150 MCG TABLET PO (06:55)
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
[2021-11-07] MEDS: BUDESONIDE 0.5 MG/2 ML NEB INH ×2 (08:45→21:51)
--- NOTE | 2021-11-07 08:49 | DI.US.S_ITS ---
PROCEDURE: US PERIPH VENOUS LOW EXTREM LT INDICATIONS: left lower extremity pain/swelling s/p L TKA TECHNIQUE: Real-time imaging, as well as color and pulse Doppler interrogation, were performed of the lower extremity deep veins from the inguinal ligament to the popliteal fossa. COMPARISON: None. FINDINGS: The common femoral, femoral and popliteal veins are normally compressible, and free of intraluminal thrombus. Color and pulse Doppler demonstrate normal phasic intraluminal flow. There is normal augmentation response to distal compression maneuver. Of note, the below the knee veins were not visualized due to large patient body habitus and overlying edema. IMPRESSION: No deep vein thrombosis of the left lower extremity. Vessels below the knee were not imaged. Dictated by: Bharati Negron M.D. on 11/07/2021 at 10:21 Approved by: Bharati Negron M.D. on 11/07/2021 at 10:22
[2021-11-07] MEDS: BUMETANIDE 1 MG TABLET PO ×2 (09:10→20:52)
[2021-11-07] MEDS: calcitrioL 0.25 MCG CAPSULE 0.5 MCG PO (09:10)
[2021-11-07] MEDS: NICOTINE 21 MG PATCH TOP (09:10)
[2021-11-07] MEDS: MAGNESIUM OXIDE 400 MG TABLET 200 MG PO (09:11)
[2021-11-07] MEDS: lamoTRIgine 100 MG TABLET 200 MG PO ×2 (09:11→20:53)
[2021-11-07] MEDS: GABAPENTIN 300 MG CAPSULE PO ×3 (09:12→20:52)
[2021-11-07] MEDS: INSULIN GLARGINE 100 UNIT/ML 3ML PEN 20 UNIT SUBCUT ×2 (09:12→20:53)
[2021-11-07] MEDS: PANTOPRAZOLE DR 40 MG TABLET PO (09:13)
[2021-11-07] MEDS: SOLIFENACIN 5 MG TABLET PO (09:13)
[2021-11-07] MEDS: DOCUSATE 100 MG CAPSULE PO ×2 (09:13→20:52)
[2021-11-07] MEDS: SPIRONOLACTONE 25 MG TABLET PO (09:13)
[2021-11-07] MEDS: PRAMIPEXOLE 1 MG TABLET 1.5 MG PO ×3 (10:03→20:52)
[2021-11-07] MEDS: HYDROMORPHONE 0.5 MG INJ 0.2 MG IV (10:50)
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
--- NOTE | 2021-11-07 11:20 | DI.RAD.S_ITS ---
PROCEDURE: XR CHEST 1V INDICATIONS: shortness of breath TECHNIQUE: One view of the chest was acquired. COMPARISON: [facility], CR, XR CHEST 1V, 06/18/2018, 16:30. FINDINGS: Surgical changes and devices: None. Lungs and pleura: Similar streaky and linear opacities at the left lung base, likely scarring and/or atelectasis. No consolidation demonstrated. No pleural effusion or pneumothorax. Mediastinum: Mediastinal contours appear normal. Heart size is normal. Bones and chest wall: No suspicious bony lesions. Overlying soft tissues appear unremarkable. IMPRESSION: No acute cardiopulmonary abnormality. Dictated by: Damián Bah M.D. on 11/07/2021 at 12:22 Approved by: Damián Bah M.D. on 11/07/2021 at 12:28
--- NOTE | 2021-11-07 11:34 | PT.IPTN ---
Current Diagnoses Unilateral primary osteoarthritis, left knee (11/06/21) Surgery Performed Operation Date: 11/05/21 07:45 Actual Procedures p Total Knee Arthroplasty(Left) - Dulce Culp MD Physical Therapy Treatment Note M2 PT-IP Current Condition Start: 11/05/21 15:23 Freq: NEEDED Status: Active Protocol: Document 11/05/21 14:30 AB (Rec: 11/05/21 15:33 AB [email or web address]) Physical Therapy Current Condition Current Condition Evaluation Date 11/05/21 Treatment Diagnosis s/p L TKA; difficulty in walking Onset Date 11/05/21 M3 PT-IP Subjective Start: 11/05/21 15:23 Freq: NEEDED Status: Active Protocol: Document 11/07/21 11:09 KS (Rec: 11/07/21 12:49 KS [id number]) Subjective Physical Therapy Visit Type Type Treatment Note Visit Start Time 11:09 Visit Stop Time 11:34 Total Visit Minutes 25 Number of CORRECTIONAL CASE MANAGER Visits 3 Physical Therapy Visit Comments Patient Comments agreeable to do PT Therapy Pain Assessment Pain When Pain Assessed During Mobility Pain Present Pain Present Pain Reported Location Left Knee Intensity 8 Scale Used Numeric (0 - 10) Pain Management Techniques Distraction,Elevation, Modification of Treatment,Re- positioning,Timing of Activity with Medications M4 PT-IP Mobility and Gait Start: 11/05/21 15:23 Freq: NEEDED Status: Active Protocol: Document 11/07/21 11:09 KS (Rec: 11/07/21 12:49 KS [id number]) PT-Bed Mobility Assessment Supine to Sit Supine to Sit Standby Assistance Scooting Scooting to Edge of Bed Contact Guard Assistance PT-Transfer Assessment Sit to and From Stand Sit to and from Stand Minimal Assistance,1 Person Assistance,Use of Upper Extremities Equipment Transfer Assistive Device Gait Belt,Front Wheeled Walker Orthotic/Prosthetic Devices or Brace: No Transfers Transfer Destination Chair Transfer Technique Pt ambulated Transfer Ability Level of Assist Minimal Assistance,Moderate Assistance,1 Person Assistance ,Use of Upper Extremities Comments Mobility Comments Pt in bed upon arrival. Provided STM L quads prior to initiating mobility, pt responded well. SBA for sup<> sit w/ increased time and cues . Pt still appearing very groggy and somewhat confused. Min A for sit<>stand w/ FWW. Pt performed [address] and then impulsively sat down w/ poor control and c/o pain. Pt practiced 3 additional sit<> stands w/ proper technique and then ambulated ~10 ft from bed to chair w/ FWW Min A. Treatment cut short by imagining and pt left in chair w/ all needs in reach. Gait Assessment Gait Gait Assistance Required: Minimum Assistance,1 Person Assist Distance (Feet) 10 Able to Maintain Weight Bearing Status Yes During Gait Assistive Devices Assistive Device Gait Belt,Front Wheeled Walker Orthotic/Prosthetic Devices or Brace: No Gait Deviations General Gait Pattern Antalgic,Decreased Stride Length,Decreased Feet Clearance Factors Limiting Gait Function Factors Limiting Gait Function Decreased Activity Tolerance, Decreased Sensation,Decreased Strength,Difficulty Following Directions,Limited Range of Motion,Pain,Poor Safety Awareness,Respiratory Distress Comments Gait Comments Able to tolerate 10 ft ambulation w/ FWW Min A w/ c/o increased pain. Stair Climbing Assessment Comments Stair Climbing Comments Unable to tolerate today. PT-Balance Assessment Sitting Balance and Reactions Static Sitting Balance Ability Fair Dynamic Sitting Balance Ability Fair Standing Balance and Reactions Static Standing Balance Ability Fair Dynamic Standing Balance Ability Fair Device Used FWW M5 PT-IP Objective Assessments Start: 11/05/21 15:23 Freq: NEEDED Status: Active Protocol: Document 11/05/21 14:30 AB (Rec: 11/05/21 15:33 AB [email or web address]) Orientation Orientation/Cognition Level of Alertness Lethargic Orientation Name Safety Awareness Decreased Safety Awareness Memory Description Short Term Impaired Gross Range of Motion Lower Extremity ROM Assessment Left Impaired Impairments L knee flexion: ~ 30 deg with increase guarding and c/o pain with movement Strength Lower Extremity Strength Assessment Left Impaired Hip 3+/5 Knee 3+/5 Sensation Assessment Sensation Gross Sensation Left LE Impaired Sensation Description Numbness Comments Sensation Comments c/o slight numbenss on LLE Muscle Tone Muscle Tone WNL Yes M6 PT-IP Treatment Start: 11/05/21 15:23 Freq: NEEDED Status: Active Protocol: Document 11/07/21 11:09 KS (Rec: 11/07/21 12:49 KS [id number]) Physical Therapy Treatment Education Education Provided Precautions,Weight Bearing Status,Post-Op Packet,Safety M7 PT-IP Assessment and Plan Start: 11/05/21 15:23 Freq: NEEDED Status: Active Protocol: Document 11/07/21 11:09 KS (Rec: 11/07/21 12:49 KS [id number]) PT Summary Assessment and Plan Potential Rehabilitation Potential Fair Status of Condition at Evaluation Evolving Summary Impairments Pain,ROM,Strength,Balance, Coordination,Sensation,Tone, Cognition,Bed Mobility, Transfers,Gait,Activity Tolerance Progress Towards Goals Slow Progress due to Pain,Slow Progress due to Activity Tolerance Assessment Summary Pt showed some progress today and was able to ambulate ~10 ft w/ FWW Min A. Poor balance, poor safety awareness, weakness, low activity tolerance, O2, and pain are all barriers. At this time, pt will require SNF to improve strength and functional mobility independence. Will continue to assess progress. Goals Bed Mobility Goal Independent Transfer Goal Independent,Front Wheeled Walker Gait Goal Independent,Front Wheel Walker Gait Distance 250 Other Goals up/down 3 steps without rails SPC + COOK SHIP min A up/down 16 steps L rail ascending SBA. Days to Meet Goals 10 Frequency of Treatment Frequency Of Treatment Twice a Day Treatment Plan Physical Therapy Treatment Plan Bed Mobility Training,Transfer Training,Gait Training, Therapeutic Exercise,Balance Retraining,Post Op Education, Discharge Planning,Hot or Cold Pack,Neuromuscular Re-ed, Coordination Retraining,Manual Therapy Weight Bearing Status Weight Bearing Status Weight Bear as Tolerated Allowed Weight Bearing Amount (enter % LLE WBAT or #) (%) Recommendations To Nursing Amount of Assist Needed 1 Person Assist Discharge Recommendations PT Discharge Recommendations Home with 24/11 Assist Available,Home Health,SNF Rehab Transportation Needs at Discharge Private Vehicle,Wheelchair/ Cabulance
[2021-11-07] MEDS: predniSONE 20 MG TABLET 40 MG PO (11:53)
--- NOTE | 2021-11-07 12:00 | CM.DPC ---
Addendum entered by Danni Brown R.N. 11/07/21 16:09: Spoke with [facility] and they are unable to take pt. Dagoberto has re-reviewed case and they have also declined pt. DEP met with the pt and spouse this afternoon to inform that placement is a barrier due to insurance. Pt states that they are agreeable to [facility]. [facility] has [facility]ed [facility] to [facility]. Possible discharge tomorrow if HH can come and assess pt. Pt states she has two sons and a daughter at home that live with her along with her spouse. They are able to provide help when needed. Danni Brown RN/BRIANP Original Note: DCP spoke with [facility] this morning and they have unfortunately declined this patient due to insurance. DCP followed up with Veren[facility] and they are unable to take this patient due to insurance. [facility] has faxed referral to [facility] in [place]. Awaiting decision. DCP to continue to follow. Danni Brown RN/BRIANP
[2021-11-07 12:02] LABS: Add Manual Diff / Slide Review NO; Basophils Absolute Auto 100 /uL (0-100); Basophils Percent Auto 0.5 % (0-2); Eosinophils Absolute Auto 300 /uL (0-450); Eosinophils Percent Auto 3.7 % (2-4); Hematocrit 40.2 % (36-46); Hemoglobin 13.3 g/dL (12.0-16.0); Lymphocytes Absolute Auto 1600 /uL (1100-4500); Mean Corpuscular HGB Conc 33.1 % (30-36); Mean Corpuscular Hemoglobin 30.6 PG (26-34); Mean Corpuscular Volume 92.3 fL (80-100); Monocytes Absolute Auto 600 /uL (0-900); Monocytes Percent Auto 6.5 % (3-14); Neutrophils Absolute Auto 6700 /uL (1500-7000); Neutrophils Percent Auto 72.3 % (50-75); Platelet Count 159 X10^3/uL (150-400); Red Blood Cell Count 4.36 X10^6/uL (4.0-5.2); Red Cell Distribution Width 14.7 % (11.6-14.8); White Blood Cell Count 9.3 X10^3/uL (4.5-11.0)
[2021-11-07 12:12] LABS: COVID19 -Nasal RAPID Negative (Negative)
[2021-11-07 12:18] LABS: Alanine Aminotransferase 14 IU/L (<35); Albumin 3.5 g/dL (3.5-5.0); Albumin Globulin Ratio 1.3 (1.0-2.8); Alkaline Phosphatase 98 U/L (38-126); Aspartate Aminotransferase 28 IU/L (14-36); BUN Creatinine Ratio 12.9 (6-22); Bilirubin Total 0.4 mg/dL (0.2-1.3); Blood Urea Nitrogen 13 mg/dL (7-17); Calcium 7.4 mg/dL (8.4-10.2); Carbon Dioxide 34 mmol/L (22-32); Chloride 99 mmol/L (98-107); Estimated Glomerular Filt Rate > 60 mL/min (>60); Globulin 2.6 g/dL (1.7-4.1); Glucose 144 mg/dL (80-110); HEMOLYSIS < 15 (0-50); Magnesium 1.7 mg/dL (1.6-2.3); Phosphorous 3.4 mg/dL (2.8-4.1); Potassium 3.6 mmol/L (3.4-5.1); Sodium 138 mmol/L (137-145); Total Protein 6.1 g/dL (6.3-8.2)
[2021-11-07 12:30] LABS: Troponin I < 0.012 ng/mL (0.01-0.034)
[2021-11-07 13:48] LABS: pH VBG 7.42 (7.33-7.43)
[2021-11-07 13:49] LABS: HCO3 VBG 36 mmol/L (23-28); PCO2 VBG 56.6 mmHg (45-50); PO2 VBG 66 mmHg (35-45)
[2021-11-07 13:50] LABS: Oxygen Saturation VBG 92 % (70-75)
[2021-11-07] MEDS: HYDROMORPHONE 2 MG TABLET 4 MG PO ×2 (14:12→21:01)
--- NOTE | 2021-11-07 14:25 | PT.IPTN ---
Current Diagnoses Unilateral primary osteoarthritis, left knee (11/06/21) Surgery Performed Operation Date: 11/05/21 07:45 Actual Procedures p Total Knee Arthroplasty(Left) - Dulce Culp MD Physical Therapy Treatment Note M2 PT-IP Current Condition Start: 11/05/21 15:23 Freq: NEEDED Status: Active Protocol: Document 11/05/21 14:30 AB (Rec: 11/05/21 15:33 AB [email or web address]) Physical Therapy Current Condition Current Condition Evaluation Date 11/05/21 Treatment Diagnosis s/p L TKA; difficulty in walking Onset Date 11/05/21 M3 PT-IP Subjective Start: 11/05/21 15:23 Freq: NEEDED Status: Active Protocol: Document 11/07/21 14:07 KS (Rec: 11/07/21 14:39 KS [id number]) Subjective Physical Therapy Visit Type Type Treatment Note Visit Start Time 14:08 Visit Stop Time 14:25 Total Visit Minutes 17 Number of SINGLE POINTED OPERATOR Visits 4 Physical Therapy Visit Comments Patient Comments agreeable to do PT Therapy Pain Assessment Pain When Pain Assessed At Rest Pain Present Pain Present Pain Reported Location Left Knee Intensity 10 Scale Used Numeric (0 - 10) Pain Management Techniques Distraction,Elevation, Modification of Treatment,Re- positioning M4 PT-IP Mobility and Gait Start: 11/05/21 15:23 Freq: NEEDED Status: Active Protocol: Document 11/07/21 14:07 KS (Rec: 11/07/21 14:39 KS [id number]) PT-Transfer Assessment Comments Mobility Comments Pt had just gotten back to bed w/ nursing and refused further ambulation due to 10/ 10 pain. She completed very minimal exercises in bed including ankle pumps, quad sets, glute sets, heel slides, and SLR. She required physical assist w/ heel slides and SLR and c/o increased pain w/ all exercises. Pt left in bed w/ all needs in reach . Gait Assessment Comments Gait Comments Pt refused. Stair Climbing Assessment Comments Stair Climbing Comments Unable to tolerate today. M5 PT-IP Objective Assessments Start: 11/05/21 15:23 Freq: NEEDED Status: Active Protocol: Document 11/05/21 14:30 AB (Rec: 11/05/21 15:33 AB [email or web address]) Orientation Orientation/Cognition Level of Alertness Lethargic Orientation Name Safety Awareness Decreased Safety Awareness Memory Description Short Term Impaired Gross Range of Motion Lower Extremity ROM Assessment Left Impaired Impairments L knee flexion: ~ 30 deg with increase guarding and c/o pain with movement Strength Lower Extremity Strength Assessment Left Impaired Hip 3+/5 Knee 3+/5 Sensation Assessment Sensation Gross Sensation Left LE Impaired Sensation Description Numbness Comments Sensation Comments c/o slight numbenss on LLE Muscle Tone Muscle Tone WNL Yes M6 PT-IP Treatment Start: 11/05/21 15:23 Freq: NEEDED Status: Active Protocol: Document 11/07/21 14:07 KS (Rec: 11/07/21 14:39 SD [id number]) Physical Therapy Treatment Exercises Exercises Ankle Pumps,Gluteal Sets,Quad Sets,Heel Slides,Straight Leg Raises Education Education Provided Safety M7 PT-IP Assessment and Plan Start: 11/05/21 15:23 Freq: NEEDED Status: Active Protocol: Document 11/07/21 14:07 KS (Rec: 11/07/21 14:39 SD [id number]) PT Summary Assessment and Plan Potential Rehabilitation Potential Fair Status of Condition at Evaluation Evolving Summary Impairments Pain,ROM,Strength,Balance, Coordination,Sensation,Tone, Cognition,Bed Mobility, Transfers,Gait,Activity Tolerance Progress Towards Goals Slow Progress due to Pain,Slow Progress due to Activity Tolerance Assessment Summary Pt refused OOB mobility due to recent transfer from chair to bed w/ nursing staff and reporting 02/10. Poor tolerance for LE exercises in bed to promote blood flow and strengthening and needing physical assist to perform heel slides and SLR due to weakness and pain. Pt will require SNF to improve strength, activity tolerance, and functional mobility. Will continue to assess progress. Goals Bed Mobility Goal Independent Transfer Goal Independent,Front Wheeled Walker Gait Goal Independent,Front Wheel Walker Gait Distance 250 Other Goals up/down 3 steps without rails SPC + SOFTWARE PRODUCT MANAGER min A up/down 16 steps L rail ascending SBA. Days to Meet Goals 10 Frequency of Treatment Frequency Of Treatment Twice a Day Treatment Plan Physical Therapy Treatment Plan Bed Mobility Training,Transfer Training,Gait Training, Therapeutic Exercise,Balance Retraining,Post Op Education, Discharge Planning,Hot or Cold Pack,Neuromuscular Re-ed, Coordination Retraining,Manual Therapy Weight Bearing Status Weight Bearing Status Weight Bear as Tolerated Allowed Weight Bearing Amount (enter % LLE WBAT or #) (%) Recommendations To Nursing Amount of Assist Needed 1 Person Assist Discharge Recommendations PT Discharge Recommendations Home with 24/11 Assist Available,Home Health,SNF Rehab Transportation Needs at Discharge Private Vehicle,Wheelchair/ Cabulance
[2021-11-07 15:43] LABS: Total CO2 VBG 38 mmol/L (24-29)
--- NOTE | 2021-11-07 17:12 | PC.NURSE ---
patient was eating chocolate while COATING AND EMBOSSING UNIT OPERATOR took blood sugar. BG 412. pt now stopped eating chocolate.
[2021-11-07] MEDS: VENLAFAXINE ER 75 MG CAP 150 MG PO (18:04)
[2021-11-07] MEDS: ASPIRIN EC 81 MG TABLET PO (20:52)
[2021-11-07] MEDS: ATORVASTATIN 20 MG TABLET PO (20:52)
[2021-11-07] MEDS: INSULIN LISPRO 100 UNIT/ML 3ML VIAL SUBCUT (21:00)
[2021-11-08] VITALS (7 sets, daily range): BP systolic 116–151; BP diastolic 60–76; PULSE 74–92; RESP 16–20; TEMP 36.2–36.4; O2SAT 92–99
[2021-11-08] MEDS: ACETAMINOPHEN 325 MG TABLET 650 MG PO ×3 (00:30→11:26)
[2021-11-08] MEDS: HYDROMORPHONE 2 MG TABLET PO (00:30)
[2021-11-08] MEDS: HYDROMORPHONE 2 MG TABLET 4 MG PO ×3 (01:59→12:17)
[2021-11-08] MEDS: LEVOTHYROXINE 150 MCG TABLET PO (05:09)
[2021-11-08] MEDS: ALBUTEROL 2.5 MG/3 ML NEB (ADULT) INH ×2 (05:16→09:11)
[2021-11-08] MEDS: INSULIN LISPRO 100 UNIT/ML 3ML VIAL SUBCUT ×2 (09:18→12:15)
[2021-11-08] MEDS: INSULIN GLARGINE 100 UNIT/ML 3ML PEN 20 UNIT SUBCUT (09:18)
[2021-11-08] MEDS: BUDESONIDE 0.5 MG/2 ML NEB INH (09:20)
[2021-11-08] MEDS: MAGNESIUM OXIDE 400 MG TABLET 200 MG PO (09:34)
[2021-11-08] MEDS: GABAPENTIN 300 MG CAPSULE PO (09:34)
[2021-11-08] MEDS: DOCUSATE 100 MG CAPSULE PO (09:34)
[2021-11-08] MEDS: PRAMIPEXOLE 1 MG TABLET 1.5 MG PO (09:36)
[2021-11-08] MEDS: SPIRONOLACTONE 25 MG TABLET PO (09:36)
[2021-11-08] MEDS: ASPIRIN EC 81 MG TABLET PO (09:36)
[2021-11-08] MEDS: calcitrioL 0.25 MCG CAPSULE 0.5 MCG PO (09:37)
[2021-11-08] MEDS: predniSONE 20 MG TABLET 40 MG PO (09:37)
[2021-11-08] MEDS: PANTOPRAZOLE DR 40 MG TABLET PO (09:37)
[2021-11-08] MEDS: BUMETANIDE 1 MG TABLET PO (09:37)
[2021-11-08] MEDS: lamoTRIgine 100 MG TABLET 200 MG PO (09:37)
[2021-11-08] MEDS: SOLIFENACIN 5 MG TABLET PO (09:37)
[2021-11-08] MEDS: NICOTINE 21 MG PATCH TOP (09:38)
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
--- NOTE | 2021-11-08 10:43 | PT.IPTN ---
Current Diagnoses Unilateral primary osteoarthritis, left knee (11/06/21) Presence of unspecified artificial knee joint (11/06/21) Surgery Performed Operation Date: 11/05/21 07:45 Actual Procedures p Total Knee Arthroplasty(Left) - Dulce Culp MD Physical Therapy Treatment Note M2 PT-IP Current Condition Start: 11/05/21 15:23 Freq: NEEDED Status: Active Protocol: Document 11/05/21 14:30 AB (Rec: 11/05/21 15:33 AB [id number]) Physical Therapy Current Condition Current Condition Evaluation Date 11/05/21 Treatment Diagnosis s/p L TKA; difficulty in walking Onset Date 11/05/21 M3 PT-IP Subjective Start: 11/05/21 15:23 Freq: NEEDED Status: Active Protocol: Document 11/08/21 10:19 KS (Rec: 11/08/21 11:55 KS [id number]) Subjective Physical Therapy Visit Type Type Treatment Note Visit Start Time 10:19 Visit Stop Time 10:43 Total Visit Minutes 24 Number of INSPECTOR ALIGNING Visits 5 Physical Therapy Visit Comments Patient Comments agreeable to do PT Therapy Pain Assessment Pain When Pain Assessed At Rest Pain Present Pain Present Pain Reported M4 PT-IP Mobility and Gait Start: 11/05/21 15:23 Freq: NEEDED Status: Active Protocol: Document 11/08/21 10:19 KS (Rec: 11/08/21 11:55 KS [id number]) PT-Bed Mobility Assessment Scooting Scooting to Edge of Bed Contact Guard Assistance PT-Transfer Assessment Sit to and From Stand Sit to and from Stand Minimal Assistance,1 Person Assistance,Use of Upper Extremities Equipment Transfer Assistive Device Gait Belt,Front Wheeled Walker Orthotic/Prosthetic Devices or Brace: No Transfers Transfer Destination Chair Transfer Technique Pt ambulated Transfer Ability Level of Assist Minimal Assistance,1 Person Assistance,Use of Upper Extremities Comments Mobility Comments Pt in chair upon arrival from therapy and stating she has been using BSC because she is not able to ambulate to toilet . Pt agreeable to try ambulating. Min A and cues for hand placement for sit<>Stand w/ FWW. Pt then ambulated ~20 ft Min A w/ FWW w/ cues for heel toe walking. pt tends to drag feet and states it is due to pain. Pt refused further ambulation and needed to sit back in chair. Pt left in chair w/ all needs in reach. Agreeable to ambulating to bathroom rather than using BSC from now on. Gait Assessment Gait Gait Assistance Required: Minimum Assistance,1 Person Assist Distance (Feet) 20 Able to Maintain Weight Bearing Status Yes During Gait Assistive Devices Assistive Device Gait Belt,Front Wheeled Walker Orthotic/Prosthetic Devices or Brace: No Gait Deviations General Gait Pattern Antalgic,Decreased Stride Length,Decreased Feet Clearance Factors Limiting Gait Function Factors Limiting Gait Function Decreased Activity Tolerance, Decreased Sensation,Decreased Strength,Difficulty Following Directions,Limited Range of Motion,Pain,Poor Safety Awareness,Respiratory Distress Comments Gait Comments Pt only able to tolerate 20 ft ambulation w/ FWW Min A due to pain, weakness, and reported feeling of SOB. O2 94 % on RA following ambulation. Stair Climbing Assessment Comments Stair Climbing Comments Not currently safe to assess. Barrier to d/c home. PT-Balance Assessment Sitting Balance and Reactions Static Sitting Balance Ability Good Dynamic Sitting Balance Ability Fair Standing Balance and Reactions Static Standing Balance Ability Fair Dynamic Standing Balance Ability Fair Device Used FWW M5 PT-IP Objective Assessments Start: 11/05/21 15:23 Freq: NEEDED Status: Active Protocol: Document 11/05/21 14:30 AB (Rec: 11/05/21 15:33 AB [id number]) Orientation Orientation/Cognition Level of Alertness Lethargic Orientation Name Safety Awareness Decreased Safety Awareness Memory Description Short Term Impaired Gross Range of Motion Lower Extremity ROM Assessment Left Impaired Impairments L knee flexion: ~ 30 deg with increase guarding and c/o pain with movement Strength Lower Extremity Strength Assessment Left Impaired Hip 3+/5 Knee 3+/5 Sensation Assessment Sensation Gross Sensation Left LE Impaired Sensation Description Numbness Comments Sensation Comments c/o slight numbenss on LLE Muscle Tone Muscle Tone WNL Yes M6 PT-IP Treatment Start: 11/05/21 15:23 Freq: NEEDED Status: Active Protocol: Document 11/08/21 10:19 KS (Rec: 11/08/21 11:55 KS [id number]) Physical Therapy Treatment Education Education Provided Weight Bearing Status,Safety M7 PT-IP Assessment and Plan Start: 11/05/21 15:23 Freq: NEEDED Status: Active Protocol: Document 11/08/21 10:19 KS (Rec: 11/08/21 11:55 KS [id number]) PT Summary Assessment and Plan Potential Rehabilitation Potential Fair Status of Condition at Evaluation Evolving Summary Impairments Pain,ROM,Strength,Balance, Coordination,Sensation,Tone, Cognition,Bed Mobility, Transfers,Gait,Activity Tolerance Progress Towards Goals Slow Progress due to Pain,Slow Progress due to Activity Tolerance Assessment Summary Pt still making minimal progress due to pain and weakness, but able to tolerate 20 ft w/ FWW today Min A. Very difficult for pr to elevate LE when ambulating and currently not able to elevate feet high enough to clear a step. Pt has 16 stairs at home and reports falling on them several times due to R knee buckling, which is her nonsurgical side. She will need SNF to improve strength and mobility before returning home. If unable to find accepting SNF, pt will need BLS transport to safely return home d/t 16 steps to get to shower/bedroom. Goals Bed Mobility Goal Independent Transfer Goal Independent,Front Wheeled Walker Gait Goal Independent,Front Wheel Walker Gait Distance 250 Other Goals up/down 3 steps without rails SPC + DIRECTOR OF INTELLIGENCE min A up/down 16 steps L rail ascending SBA. Days to Meet Goals 10 Frequency of Treatment Frequency Of Treatment Twice a Day Treatment Plan Physical Therapy Treatment Plan Bed Mobility Training,Transfer Training,Gait Training, Therapeutic Exercise,Balance Retraining,Post Op Education, Discharge Planning,Hot or Cold Pack,Neuromuscular Re-ed, Coordination Retraining,Manual Therapy Weight Bearing Status Weight Bearing Status Weight Bear as Tolerated Allowed Weight Bearing Amount (enter % LLE WBAT or #) (%) Recommendations To Nursing Amount of Assist Needed 1 Person Assist Discharge Recommendations PT Discharge Recommendations Home with 24/11 Assist Available,Home Health,SNF Rehab Transportation Needs at Discharge Stretcher/Ambulance
--- NOTE | 2021-11-08 12:13 | CM.DPC ---
DCP spoke with pt today regarding discharge. Pt states that she has 16 steps to get to a room where there is a bed. DCP spoke about BLS transport home. Pt agrees that that would be the best option. DCP verbalized that there is a possibility her insurance may not cover and she could be responsible for out of pocket cost of $1,800. Pt verbalized understanding and verbalized that she never had a problem in the past and she does not anticipate that cost. DCP verbalized understanding and verbalized to pt that ambulance will be here around [id number]. DCP confirmed that family was at home awaiting for her arrival. P: Pt to discharge home today via BLS transport. Danni Brown RN/BRIANP
--- NOTE | 2021-11-08 12:14 | CM.DPNOTE ---
Called for S transport per Danni to take pt. to her residence that has [address] [facility]. I spoke to Gianni who said that if her insurance does not cover this, (BS out of [facility], the estimated cost would be $1850. I relayed this information to Danni. Shahida Whitley, JAM Assist.
--- NOTE | 2021-11-08 13:26 | PC.NURSE ---
Day shift: Paperwork signed and all questions answered. Pt in her home clothes now. NANCY dressing patent with scant spots of shadow drainage. Pt has her home belongings gathered and in her suitcase. Awaiting BLS transport to home. Home Health set up for when she gets home. CMS intact. VS WNL. RA 95%. Encouraged to cough and deep breath now and when she gets home as directed. Using I.S. as directed as well.
--- NOTE | 2021-11-08 14:01 | PC.NURSE ---
Day shift: Report given to BLS. Pt left unit at approx 1400 via BLS. She has all belongings with her.
== END 2021-11-08 14:05 | disposition home or self-care (01) ==
LOC: OR 11-07 08:06 → AC 11-07 08:06
PROVIDERS: Internal Medicine; Admitting Provider Orthopaedic Surgery; PCP Internal Medicine; Referring Provider Orthopaedic Surgery; Visit Provider Orthopaedic Surgery
PROC: 0SRD0JZ Replacement of Left Knee Joint with Synthetic Substitute, Open Approach (ICD-10-PCS; CPT 27447; principal; 2021-11-05 07:45)
DX: M17.12 Unilateral primary osteoarthritis, left knee (principal); J96.01 Acute respiratory failure with hypoxia; J44.1 Chronic obstructive pulmonary disease with (acute) exacerbation; E11.9 Type 2 diabetes mellitus without complications; Z79.4 Long term (current) use of insulin; F17.210 Nicotine dependence, cigarettes, uncomplicated; I87.8 Other specified disorders of veins; G89.4 Chronic pain syndrome; I12.9 Hypertensive chronic kidney disease with stage 1 through stage 4 chronic kidney disease, or unspecified chronic kidney disease; N18.30 Chronic kidney disease, stage 3 unspecified; G40.909 Epilepsy, unspecified, not intractable, without status epilepticus; Z20.822 Contact with and (suspected) exposure to COVID-19
CPT/HCPCS: 27447; 36415; 71045; 73560; 80053; 82805; 82962; 83735; 84100; 84484; 85014; 85018; 85025; 87635; 93005; 93010; 93971; 94640; 94760; 94762; 97110; 97116; 97162; 97530; C1776; C9803; G0378; C1713; C9290; J0171; J0330; J1100; J1170; J1815; J2250; J2274; J2405; J2704; J3010; J3410; J7613

== ENCOUNTER 2021-11-25 15:56 | Inpatient (IN) | payer MEDICARE, BC, SELFPAY ==
[2021-11-05 12:26] VITALS: BMI 36.3
[2021-11-25] VITALS (9 sets, daily range): BP systolic 116–136; BP diastolic 68–87; PULSE 78–86; RESP 14–22; TEMP 36.5–37.2; O2SAT 85–96; BMI 37.4
--- NOTE | 2021-11-25 16:28 | DI.RAD.S_ITS ---
PROCEDURE: XR CHEST 1V INDICATIONS: suspected sepsis TECHNIQUE: One view of the chest was acquired. COMPARISON: [facility], CR, XR CHEST 1V, 11/07/2021, 11:24. FINDINGS: Surgical changes and devices: None. Lungs and pleura: There is moderate patchy opacity within the bilateral perihilar locations in bilateral lung bases. No pleural effusions or pneumothorax. Mediastinum: Mediastinal contours appear normal. Heart size is normal. Bones and chest wall: No suspicious bony lesions. Overlying soft tissues appear unremarkable. IMPRESSION: Bilateral pneumonia. Dictated by: Alexis Trent M.D. on 11/25/2021 at 16:50 Approved by: Alexis Trent M.D. on 11/25/2021 at 16:50
[2021-11-25 17:02] LABS: Add Manual Diff / Slide Review NO; Basophils Absolute Auto 100 /uL (0-100); Basophils Percent Auto 1.3 % (0-2); Eosinophils Absolute Auto 200 /uL (0-450); Hematocrit 39.4 % (36-46); Hemoglobin 13.3 g/dL (12.0-16.0); Lymphocytes Absolute Auto 1500 /uL (1100-4500); Lymphocytes Percent Auto 19.9 % (25-40); Mean Corpuscular HGB Conc 33.7 % (30-36); Mean Corpuscular Hemoglobin 30.6 PG (26-34); Mean Corpuscular Volume 90.9 fL (80-100); Monocytes Absolute Auto 500 /uL (0-900); Monocytes Percent Auto 6.7 % (3-14); Neutrophils Absolute Auto 5300 /uL (1500-7000); Neutrophils Percent Auto 69.1 % (50-75); Platelet Count 227 X10^3/uL (150-400); Red Blood Cell Count 4.33 X10^6/uL (4.0-5.2); Red Cell Distribution Width 14.9 % (11.6-14.8); White Blood Cell Count 7.7 X10^3/uL (4.5-11.0)
[2021-11-25 17:07] LABS: Alanine Aminotransferase 11 IU/L (<35); Albumin 3.9 g/dL (3.5-5.0); Albumin Globulin Ratio 1.3 (1.0-2.8); Alkaline Phosphatase 113 U/L (38-126); Aspartate Aminotransferase 16 IU/L (14-36); BUN Creatinine Ratio 14.1 (6-22); Bilirubin Total 0.4 mg/dL (0.2-1.3); Blood Urea Nitrogen 14 mg/dL (7-17); Calcium 7.6 mg/dL (8.4-10.2); Carbon Dioxide 29 mmol/L (22-32); Chloride 103 mmol/L (98-107); Estimated Glomerular Filt Rate > 60 mL/min (>60); Glucose 148 mg/dL (80-110); HEMOLYSIS < 15 (0-50); Lipase 33 U/L (23-300); Potassium 3.6 mmol/L (3.4-5.1); Sodium 139 mmol/L (137-145); Total Protein 6.9 g/dL (6.3-8.2)
[2021-11-25 17:23] LABS: Procalcitonin 0.04 ng/mL (<0.5)
[2021-11-25 17:28] LABS: Lactate (Lactic Acid) 1.3 mmol/L (0.7-2.1)
[2021-11-25 18:35] LABS: Creatine Kinase 57 U/L (30-135)
[2021-11-25 18:47] LABS: COVID19 -Nasal RAPID Negative (Negative)
[2021-11-25 18:49] LABS: NT-proBNP (BNP-Adult 18+) 110 pg/mL (<125); Troponin I < 0.012 ng/mL (0.01-0.034)
--- NOTE | 2021-11-25 19:21 | DI.CT.S_ITS ---
PROCEDURE: CT ANGIO CHEST PE PROTOCOL INDICATIONS: cough, fever, recent surgery TECHNIQUE: After the administration of intravenous contrast, 2 mm thick sections acquired from the pulmonary apices to the posterior costophrenic angles. 3-dimensional maximum intensity projection (MIP) coronal and sagittal reformats were then acquired through the thorax. For radiation dose reduction, the following was used: automated exposure control, adjustment of mA and/or kV according to patient size. COMPARISON: [facility], CR, XR CHEST 1V, 11/25/2021, 16:28. FINDINGS: Image quality: Excellent. Pulmonary arteries: Pulmonary arteries are normal in size, and demonstrate no intraluminal filling defects to suggest central pulmonary embolism. Lungs and pleura: Lobe, lingula and both lower lobe atelectasis. No pleural effusions or pneumothorax. Central and peripheral airways are patent. Mediastinum: Heart size is mildly increased, without pericardial effusion. No mediastinal or hilar adenopathy. Thoracic aorta is normal in caliber and enhancement. Esophagus is normal in caliber. Small hiatal hernia. Bones and chest wall: No suspicious bony lesions. Lower cervical spine fusion. Degenerative changes in thoracic spine. Ribs and thoracic spine appear intact throughout. Thyroid gland is normal. No axillary or supraclavicular adenopathy. Abdomen: Visualized upper abdominal solid organs appear normal in the early arterial phase of enhancement. IMPRESSION: 1. No evidence for pulmonary embolism. 2. Right middle lobe, lingula and both lower lobe atelectasis. 3. Mild cardiomegaly. 4. Small hiatal hernia. Dictated by: Kierra Paige M.D. on 11/25/2021 at 20:12 Approved by: Kierra Paige M.D. on 11/25/2021 at 20:17
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
[2021-11-25] MEDS: HYDROMORPHONE 0.5 MG INJ IV (19:52)
[2021-11-25] MEDS: ONDANSETRON 4 MG/2 ML INJ IV (19:53)
[2021-11-25] MEDS: SODIUM CHLORIDE 0.9% 500 ML 1000 ML IV (19:53)
[2021-11-25] MEDS: ALBUTEROL/IPRATROPIUM 3 ML AMPUL INH (19:57)
[2021-11-25] MEDS: methylPREDNISolone 125 MG/2 ML VIAL IV (20:00)
[2021-11-25] MEDS: cefTRIAXone 2,000 MG in SODIUM CHLORIDE 0.9% 100 ML 200 MG IV (23:09)
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
[2021-11-26] MEDS: levoFLOXacin 750 MG/150 ML PIGGYBACK 100 MG IV (00:59)
[2021-11-26] MEDS: polyethylene glycoL 3350 17 GM POWD.PACK PO ×2 (01:03→08:51)
[2021-11-26] MEDS: ACETAMINOPHEN 325 MG TABLET 650 MG PO ×2 (01:24→09:17)
[2021-11-26] MEDS: OXYCODONE IR 5 MG TABLET 10 MG PO ×2 (01:26→09:17)
[2021-11-26] MEDS: BISACODYL 10 MG SUPP PR (01:36)
[2021-11-26 02:43] LABS: Appearance Urine UA CLEAR; Bilirubin Urine UA NEGATIVE (NEGATIVE); Color Urine UA YELLOW; Glucose Urine UA NEGATIVE (Negative); Ketones Urine UA NEGATIVE (NEGATIVE); Leukocyte Esterase Urine UA NEGATIVE (NEGATIVE); Nitrite Urine UA NEGATIVE (Negative); Occult Blood Urine UA NEGATIVE (Negative); Protein Urine UA NEGATIVE (Negative); Specific Gravity Urine UA <=1.005 (1.000-1.035); Urobilinogen Urine UA 0.2 E.U./dL (0.2)
[2021-11-26 02:56] LABS: Bacteria Urine None Seen; Culture Indicated Urine Cult Not Indicated; RBC Urine 0-1/HPF (0-5/HPF); Urine Comments Microscopic Normal; WBC Urine None Seen (0-5/HPF)
--- NOTE | 2021-11-26 03:20 | PC.NURSE ---
Comment: Left knee incision with nasir and erythema
--- NOTE | 2021-11-26 03:23 | PC.NURSE ---
Comment: Proximal Left knee incision Comment:
--- NOTE | 2021-11-26 03:24 | PC.NURSE ---
Comment: Left knee incision
--- NOTE | 2021-11-26 03:25 | PC.NURSE ---
Comment: Left knee incision with erythema Comment:
--- NOTE | 2021-11-26 03:26 | PC.NURSE ---
Comment: Left buttock wound. Comment:
--- NOTE | 2021-11-26 03:29 | PC.NURSE ---
Comment: Gluteal cleft
[2021-11-26 04:46] VITALS: O2SAT 96
[2021-11-26 05:31] LABS: Add Manual Diff / Slide Review NO; Basophils Absolute Auto 0 /uL (0-100); Basophils Percent Auto 0.2 % (0-2); Eosinophils Absolute Auto 0 /uL (0-450); Hematocrit 39.8 % (36-46); Hemoglobin 13.2 g/dL (12.0-16.0); Lymphocytes Absolute Auto 700 /uL (1100-4500); Lymphocytes Percent Auto 10.6 % (25-40); Mean Corpuscular HGB Conc 33.3 % (30-36); Mean Corpuscular Hemoglobin 30.3 PG (26-34); Monocytes Absolute Auto 100 /uL (0-900); Neutrophils Absolute Auto 5900 /uL (1500-7000); Neutrophils Percent Auto 88.2 % (50-75); Platelet Count 243 X10^3/uL (150-400); Red Blood Cell Count 4.37 X10^6/uL (4.0-5.2); Red Cell Distribution Width 14.8 % (11.6-14.8); White Blood Cell Count 6.7 X10^3/uL (4.5-11.0)
[2021-11-26 05:51] LABS: BUN Creatinine Ratio 14.3 (6-22); Blood Urea Nitrogen 14 mg/dL (7-17); Calcium 7.4 mg/dL (8.4-10.2); Carbon Dioxide 30 mmol/L (22-32); Chloride 103 mmol/L (98-107); Estimated Glomerular Filt Rate > 60 mL/min (>60); Glucose 274 mg/dL (80-110); HEMOLYSIS < 15 (0-50); Potassium 4.3 mmol/L (3.4-5.1); Sodium 137 mmol/L (137-145)
--- NOTE | 2021-11-26 05:55 | PC.NURSE ---
Addendum entered by Soumya Stark R.N. 11/26/21 06:23: Ate a late HS snack, 1/2 tuna and 1/2 egg salad sandwiches. Patient did not want to take her Lantus insulin late last night, will start this. am. Original Note: End of shift note. Care of patient from [id number]. Patient admitted during the night from ED. Arrived via stretcher [id number], able to walk from stretcher to bed with FWW. Complained of left knee pain on admit, improved pain control with ice, Tylenol and oxycodone 10mg po. Patient informed she has a bladder electrical stimulator implant for her overactive bladder. She was up to BR X1, voided 500ml. Complained of constipation, given Miralax and Dulcolax suppository. Has not had a BM this shift. LBM 4 days ago per patient report. O2 Saturation 96% on 2LNC.
[2021-11-26 06:00] VITALS: BP 109/55; PULSE 71; RESP 18; TEMP 36; O2SAT 98
[2021-11-26] MEDS: BUDESONIDE 0.5 MG/2 ML NEB INH (08:14)
[2021-11-26 08:20] VITALS: O2SAT 94
[2021-11-26] MEDS: DOCUSATE 100 MG CAPSULE PO (08:51)
[2021-11-26] MEDS: GABAPENTIN 300 MG CAPSULE PO ×2 (08:51→14:32)
[2021-11-26] MEDS: LEVOTHYROXINE 150 MCG TABLET PO (08:51)
[2021-11-26] MEDS: PRAMIPEXOLE 1 MG TABLET 1.5 MG PO ×2 (08:52→14:31)
[2021-11-26] MEDS: SOLIFENACIN 5 MG TABLET PO (08:52)
[2021-11-26] MEDS: HEPARIN 5,000 UNIT/ML VIAL 5000 UNIT SUBCUT (08:52)
[2021-11-26] MEDS: INSULIN GLARGINE 100 UNIT/ML 3ML PEN 20 UNIT SUBCUT (08:52)
[2021-11-26] MEDS: BUMETANIDE 1 MG TABLET PO (08:52)
[2021-11-26] MEDS: INSULIN LISPRO 100 UNIT/ML 3ML VIAL SUBCUT ×2 (08:53→12:28)
[2021-11-26] MEDS: NICOTINE 21 MG PATCH TOP (09:53)
[2021-11-26] MEDS: lamoTRIgine 100 MG TABLET 200 MG PO (09:53)
--- NOTE | 2021-11-26 10:25 | PC.RNWOUND ---
Patient resting in bed, awake and alert, turns to right side with minimal assist from primary nurse and wound nurse. Between buttocks is reddened in a linear pattern along the intergluteal cleft consistent with intertriginous dermatitis. Z-guard paste is applied to this area. Bilateral buttocks have small areas of light brown bruising. When asked if patient knows where bruises came from, patient states, I fall a lot. Patient turns onto back and redness to the intergluteal folds is noted. Pateint says she uses antifungal powder as needed at home and it is effective. Left knee surgical incision with nasir has no active drainage at this time, erythema to periwound patient says 'is already improving, nasir to wound are intact and well-approximated. Patient is tilted to right side with pillow in 30 degree tilt with heels floated off bed surface with pillows, patient reports comfort. Hospitalist comes in to see patient, says he will order antifungal powder for skin folds.
[2021-11-26 11:00] VITALS: O2SAT 93
--- NOTE | 2021-11-26 11:03 | DIET.CONS2 ---
Dietary Inpatient Consultation Note Admission Date: 11/25/2021 21:51 61y F admitted for wound erythema s/p elective knee replacement in early November. Pt refused Lantus last evening, am BG 278. Recc HgA1c as BG >180 suppresses wound healing. Diet: 11/25/21 Breakfast Carbohydrate Consistent Diet Diet Modifications: Carbohydrate level: Medium (3 CHO) Nutrition Percent Meal Consumed 100% 11/26/21 10:16 Percent Meal Consumed 100% 11/26/21 02:00 Electronically Signed by: Jessica Page 11/26/21 11:03 Clinical Dietitian [address] [id number]
--- NOTE | 2021-11-26 11:14 | DI.US.S_ITS ---
PROCEDURE: US PERIPH VENOUS LOW EXTREM BI INDICATIONS: r/o DVT TECHNIQUE: Real-time imaging, as well as color and pulse Doppler interrogation, were performed of the deep veins of both legs from the inguinal ligament to the popliteal fossa. COMPARISON: None. FINDINGS: Right: The common femoral, femoral and popliteal veins are normally compressible, and free of intraluminal thrombus. Color and pulse Doppler demonstrate normal phasic intravascular flow. There is normal augmentation response to distal compression maneuver. Left: The common femoral, femoral and popliteal veins are normally compressible, and free of intraluminal thrombus. Color and pulse Doppler demonstrate normal phasic intravascular flow. There is normal augmentation response to distal compression maneuver. IMPRESSION: No DVT in the lower extremities bilaterally. Dictated by: Kevin Mcguire M.D. on 11/26/2021 at 14:43 Approved by: Kevin Mcguire M.D. on 11/26/2021 at 14:43
[2021-11-26 12:00] VITALS: BP 102/50; PULSE 74; RESP 16; TEMP 35.7; O2SAT 93
--- NOTE | 2021-11-26 12:43 | CM.DANOTE ---
Initial Discharge Assessment: Case received, EMR reviewed. Met with patient in her room and introduced self and role. Payer: Medicare A Only and BS Out of [facility] PCP: Sole Davenport, surgeon Dr Dulce Culp 61 year old female admitted yesterday pm with leg swelling. Recent history of L TKA by Dr Culp on 11/05/21. [place] are still in and lower portion of incision is darker pink-red without drainage. Dr Culp in to see her today. Patient is a 2-4 ppd smoker and has COPD, on Nicotine patch in hospital. Patient has multiple medical issues (DM, seizure disorder), she tires easily. Her spouse Navarro is supportive and assists patient with some ADLs and does the driving. Plan: Patient wishes to return home with spouse. Will follow for needs. Alison Mckeon RN/BRIANP Discharge Planning/Care Management CM Discharge Assessment Start: 11/26/21 12:41 Freq: Status: Active Protocol: Document 11/26/21 12:41 (Rec: 11/26/21 12:43 [id number]) Discharge Planning Assessment DPOA/Assigned Designee Name Alison Mckeon RN, DCP Advance Directives? No Advance Directives on File No History Provided By Patient,Medical Record Prior Living Arrangements House Household Members spouse Type of transporation used prior to Relies on Others admit Independent with ADL's No: Spouse assists with some ADLs and driving, home chores Is patient alert and oriented? Yes Needs Assistance With Bathing,Meal Prep,Managing Medications,Home Chores / Shopping Caregiver for Another No DME Already Rented / Owned FWW / Walker Barriers to Discharge No Discharge Plan Home Transportation Arrangement Spouse Referrals Initiated None needed If patient plan is home with home health Yes: There some presigned face : Has signed face to face form been to face forms available completed? Review Status In Process Next Review Type Continued Stay Review
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
--- NOTE | 2021-11-26 15:49 | PC.NURSE ---
Physical Therapy OP: Patient was going to PT out patient with Dr Culp 2-3 x week. Was supposed to go 11/25 and did not go d/t hospitalization
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
[2021-11-26 16:59] VITALS: O2SAT 91
--- NOTE | 2021-11-26 17:12 | PC.NURSE ---
Discharge instructions given, all questions answered, all belongings accounted for, IV and nicotine patch removed (per pt request), discussed the importance of and how to use the incentive Spirometer, asking for assistance from PCP if wanting to quit smoking, follow up appointments for Ortho and PT already in place. Patient taken by w/c to front, with car waiting.
== END 2021-11-26 17:15 | disposition home or self-care (01) | DRG 862 ==
LOC: ED 18:06 → AC 22:00 → ICU 22:47 → AC 11-27 07:33 → ICU 11-27 07:33
PROVIDERS: Emergency Medicine; Admitting Provider Internal Medicine; Emergency Provider Emergency Medicine; PCP Internal Medicine; Referring Provider Emergency Medicine; Visit Provider Internal Medicine
DX: T81.41XA Infection following a procedure, superficial incisional surgical site, initial encounter (principal); J96.21 Acute and chronic respiratory failure with hypoxia; L03.116 Cellulitis of left lower limb; K59.03 Drug induced constipation; T40.2X5A Adverse effect of other opioids, initial encounter; G40.909 Epilepsy, unspecified, not intractable, without status epilepticus; E11.9 Type 2 diabetes mellitus without complications; F41.9 Anxiety disorder, unspecified; E87.6 Hypokalemia; I10 Essential (primary) hypertension; E78.5 Hyperlipidemia, unspecified; J44.9 Chronic obstructive pulmonary disease, unspecified; F17.210 Nicotine dependence, cigarettes, uncomplicated; Z96.652 Presence of left artificial knee joint; Z20.822 Contact with and (suspected) exposure to COVID-19; Z79.4 Long term (current) use of insulin
CPT/HCPCS: 36415; 71045; 71275; 80048; 80053; 81001; 82550; 82962; 83605; 83690; 83880; 84145; 84484; 85025; 87040; 87070; 87075; 87205; 87635; 87797; 93970; 94640; 94760; 96374; 96375; 99284; 99285; C9803; J0696; J0878; J1170; J1644; J1815; J1956; J2405; J2930; Q9967

== ENCOUNTER 2022-11-27 14:02 | Emergency (ER) | payer BC, SELFPAY ==
[2021-11-25 22:08] VITALS: BMI 37.4
[2022-11-27 14:14] VITALS: BP 109/66; PULSE 70; RESP 18; TEMP 36.9; O2SAT 95; BMI 35.5
[2022-11-27 16:07] VITALS: BP 111/63; PULSE 63; RESP 18; O2SAT 98
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
== END 2022-11-27 16:10 | disposition home or self-care (01) ==
PROVIDERS: Emergency Provider Nurse Practitioner Critical Care Medicine; PCP Internal Medicine
DX: H66.001 Acute suppurative otitis media without spontaneous rupture of ear drum, right ear (principal); Z79.899 Other long term (current) drug therapy
CPT/HCPCS: 99282

== ENCOUNTER 2023-04-08 11:10 | Emergency (ER) | payer MEDICARE, BC, SELFPAY ==
[2021-11-25 22:08] VITALS: BMI 37.4
[2023-04-08 11:40] VITALS: BP 172/82; PULSE 89; RESP 18; TEMP 36.8; O2SAT 96; BMI 36.2
[2023-04-08 12:29] VITALS: BP 117/63; PULSE 76; O2SAT 97
[2023-04-08 12:30] VITALS: BP 119/64; PULSE 79; O2SAT 96
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
--- NOTE | 2023-04-08 12:33 | DI.US.S_ITS ---
PROCEDURE: US PERIPH VENOUS LOW EXTREM RT INDICATIONS: PAIN/SWELLING/REDNESS TECHNIQUE: Real-time imaging, as well as color and pulse Doppler interrogation, were performed of the lower extremity deep veins from the inguinal ligament to the popliteal fossa, with documentation of the visualized calf veins. COMPARISON: None. FINDINGS: The common femoral, femoral, popliteal, and the visualized calf veins are normally compressible, and free of intraluminal thrombus. Color and pulse Doppler demonstrate normal phasic intraluminal flow. There is normal augmentation response to distal compression maneuver. Peroneal vein and proximal to mid posterior tibial vein are not well seen. Distal posterior tibial vein is compressible with no evidence of thrombus. Subcutaneous edema throughout the right lower extremity. IMPRESSION: No findings of lower extremity deep venous thrombosis. Dictated by: Stephon Kuo M.D. on 04/08/2023 at 13:35 Approved by: Stephon Kuo M.D. on 04/08/2023 at 13:36
[2023-04-08 12:58] LABS: Add Manual Diff / Slide Review NO; Basophils Absolute Auto 100 /uL (0-100); Basophils Percent Auto 0.6 % (0-2); Eosinophils Absolute Auto 200 /uL (0-450); Eosinophils Percent Auto 2.6 % (2-4); Hematocrit 39.6 % (36-46); Hemoglobin 13.6 g/dL (12.0-16.0); Lymphocytes Absolute Auto 2200 /uL (1100-4500); Lymphocytes Percent Auto 22.9 % (25-40); Mean Corpuscular HGB Conc 34.4 % (30-36); Mean Corpuscular Hemoglobin 31.6 PG (26-34); Mean Corpuscular Volume 91.9 fL (80-100); Monocytes Absolute Auto 600 /uL (0-900); Monocytes Percent Auto 6.2 % (3-14); Neutrophils Absolute Auto 6400 /uL (1500-7000); Neutrophils Percent Auto 67.7 % (50-75); Platelet Count 166 X10^3/uL (150-400); Red Blood Cell Count 4.31 X10^6/uL (4.0-5.2); Red Cell Distribution Width 14.2 % (11.6-14.8); White Blood Cell Count 9.5 X10^3/uL (4.5-11.0)
[2023-04-08 12:59] LABS: Alanine Aminotransferase 19 IU/L (<35); Albumin 3.6 g/dL (3.5-5.0); Albumin Globulin Ratio 1.3 (1.0-2.8); Alkaline Phosphatase 137 U/L (38-126); Aspartate Aminotransferase 21 IU/L (14-36); BUN Creatinine Ratio 20.2 (6-22); Bilirubin Total 0.4 mg/dL (0.2-1.3); Blood Urea Nitrogen 20 mg/dL (7-17); Calcium 9.1 mg/dL (8.4-10.2); Carbon Dioxide 28 mmol/L (22-32); Chloride 103 mmol/L (98-107); Estimated Glomerular Filt Rate > 60 mL/min (>60); Globulin 2.7 g/dL (1.7-4.1); Glucose 216 mg/dL (80-110); HEMOLYSIS < 15 (0-50); Lactate (Lactic Acid) 1.3 mmol/L (0.7-2.1); Potassium 3.8 mmol/L (3.4-5.1); Sodium 137 mmol/L (137-145); Total Protein 6.3 g/dL (6.3-8.2)
[2023-04-08 13:00] VITALS: BP 124/63; PULSE 79; RESP 16; O2SAT 95
[2023-04-08 13:09] LABS: Hemoglobin A1C% w Est Avg Glu 8.4 % (4.0-6.0)
[2023-04-08 13:30] VITALS: BP 120/64; PULSE 80; RESP 16; O2SAT 95
[2023-04-08] MEDS: HYDROCODONE/ACET 5/325 TABLET 1 TAB PO (13:38)
[2023-04-08 13:54] VITALS: TEMP 37.2
== END 2023-04-08 13:55 | disposition home or self-care (01) ==
PROVIDERS: Emergency Provider Emergency Medicine; PCP Internal Medicine
DX: L03.115 Cellulitis of right lower limb (principal); B96.89 Other specified bacterial agents as the cause of diseases classified elsewhere; E11.69 Type 2 diabetes mellitus with other specified complication; Z79.4 Long term (current) use of insulin; F17.200 Nicotine dependence, unspecified, uncomplicated
CPT/HCPCS: 80053; 83036; 83605; 85025; 87040; 87070; 87077; 87186; 87205; 93971; 99283

== ENCOUNTER 2023-05-12 14:43 | Emergency (ER) | payer MEDICARE, BC, SELFPAY ==
[2021-11-25 22:08] VITALS: BMI 37.4
[2023-05-12 15:00] VITALS: BP 119/61; PULSE 73; RESP 18; TEMP 36.6; O2SAT 96; BMI 36.0
[2023-05-12 15:29] VITALS: BP 118/69; PULSE 77; RESP 16; TEMP 36.8; O2SAT 96
--- NOTE | 2023-05-12 16:20 | DI.US.S_ITS ---
PROCEDURE: US PERIP VENOUS LOW EXTREM RT INDICATIONS: PAIN AND ERYTHEMA TECHNIQUE: Real-time imaging, as well as color and pulse Doppler interrogation, were performed of the lower extremity deep veins from the inguinal ligament to the popliteal fossa, with documentation of the visualized calf veins. COMPARISON: [facility], , [place] [facility] VENOUS LOW EXTREM RT, 04/08/2023, 12:56. FINDINGS: The common femoral, femoral, popliteal, and the visualized calf veins are normally compressible, and free of intraluminal thrombus. Color and pulse Doppler demonstrate normal phasic intraluminal flow. There is normal augmentation response to distal compression maneuver. IMPRESSION: No findings of lower extremity deep venous thrombosis. Dictated by: Dontae Lynch M.D. on 05/12/2023 at 18:07 Approved by: Dontae Lynch M.D. on 05/12/2023 at 18:08
[2023-05-12] MEDS: OXYCODONE/ACETAMINOPHEN 5/325 TABLET 1 TAB PO (16:35)
[2023-05-12 16:49] VITALS: BP 123/68; PULSE 62; RESP 12; O2SAT 94
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
== END 2023-05-12 18:44 | disposition home or self-care (01) ==
PROVIDERS: Emergency Provider Student in an Organized Health Care Education/Training Program; PCP Internal Medicine
DX: L03.115 Cellulitis of right lower limb (principal); Z79.899 Other long term (current) drug therapy
CPT/HCPCS: 87070; 87075; 87077; 87186; 87205; 93971; 99283